=== PATIENT | female | born 1955 | race Caucasian/White ===

== ENCOUNTER → 2023-10-24 13:46 | Outpatient (CLI) | payer MEDICARE, SELFPAY ==
--- NOTE | 2023-11-12 17:02 | DIAB.INIT ---
Initial Diabetes Education Assessment Name: Agatha Amaro Date: 10/24/23 Time: 2-315p Dx: Diabetes Provider: Armani Snider presents for initial visit with friend, Kulwant. Reports PMH of Dm x 2 years. Currently on both oral and MDI. She is interested in CGM. Reports a fall at home, hypoglcyemia not ruled out as a contributing factor per report. Currently living in a SNF and plans for moving to a assisted environment thereafter. Endorses FH of DM with both parents and brother. Needing education on tx of lows. No recent labs available. Has SMBG results. 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 States she has a referral to [facility] but has not made an appt. Self-Monitoring Blood Glucose: Checks FBG and pre meals. Recent readings range from 97 to over 200. States she is unsure of SSI amts since SNF gives her dose. Diabetes Medications: 500mg Metformin BID 10mg Jardiance 24u Glargine 6u + SSi Lispro Pertinent Labs: None available. Intervention: This participant was very receptive. Provided appropriate educational handouts. Discussed the following topics: Completed intake assessment. Discussed barriers to care. Pathophysiology of type 2 diabetes HgA1c, its correlation to blood glucose numbers, and rationale for goal self monitoring with finger sticks vs CGM Benefits, indications, precautions of CGM use Hypoglycemia tx with Rule of 15 Created SMART goals for patient self-care and success. Goals: Call endo for appt Keep glucose tabs for lows Follow-up: [facility] follow-up in 4 weeks Ting Pickens RDN, ZENON Certified Diabetes Care and Manager Mac P: [phone] Thank you for this referral
== END ==
PROVIDERS: PCP Family Medicine; Referring Provider Family Medicine
DX: E11.9 Type 2 diabetes mellitus without complications (principal); Z71.3 Dietary counseling and surveillance
CPT/HCPCS: G0108

== ENCOUNTER 2023-11-14 19:49 | Emergency (ER) | payer MEDICARE, SELFPAY ==
[2023-11-14] VITALS (8 sets, daily range): BP systolic 118–155; BP diastolic 59–69; PULSE 75–81; RESP 14–17; TEMP 36.6; O2SAT 96–99; BMI 18.3
[2023-11-14 20:17] LABS: Add Manual Diff / Slide Review NO; Basophils Absolute Auto 100 /uL (0-100); Basophils Percent Auto 0.7 % (0-2); Eosinophils Absolute Auto 200 /uL (0-450); Eosinophils Percent Auto 1.6 % (2-4); Hematocrit 37.1 % (36-46); Hemoglobin 12.5 g/dL (12.0-16.0); Lymphocytes Absolute Auto 2900 /uL (1100-4500); Lymphocytes Percent Auto 25.5 % (25-40); Mean Corpuscular HGB Conc 33.7 % (30-36); Mean Corpuscular Hemoglobin 31.1 PG (26-34); Mean Corpuscular Volume 92.3 fL (80-100); Monocytes Absolute Auto 900 /uL (0-900); Monocytes Percent Auto 7.6 % (3-14); Neutrophils Absolute Auto 7300 /uL (1500-7000); Neutrophils Percent Auto 64.6 % (50-75); Platelet Count 340 X10^3/uL (150-400); Red Blood Cell Count 4.01 X10^6/uL (4.0-5.2); Red Cell Distribution Width 13.9 % (11.6-14.8); White Blood Cell Count 11.4 X10^3/uL (4.5-11.0)
[2023-11-14] MEDS: SODIUM CHLORIDE 0.9% 1,000 ML 1000 ML IV (20:19)
[2023-11-14 20:20] LABS: HEMOLYSIS < 15 (0-50)
[2023-11-14 20:24] LABS: Alanine Aminotransferase 23 IU/L (<35); Albumin 4.7 g/dL (3.5-5.0); Albumin Globulin Ratio 1.6 (1.0-2.8); Alkaline Phosphatase 109 U/L (38-126); Aspartate Aminotransferase 40 IU/L (14-36); BUN Creatinine Ratio 54.2 (6-22); Bilirubin Total 0.3 mg/dL (0.2-1.3); Blood Urea Nitrogen 45 mg/dL (7-17); Calcium 9.6 mg/dL (8.4-10.2); Carbon Dioxide 23 mmol/L (22-32); Chloride 101 mmol/L (98-107); Creatine Kinase 46 U/L (30-135); Estimated Glomerular Filt Rate > 60 mL/min (>60); Glucose 209 mg/dL (80-110); Lipase 165 U/L (23-300); Potassium 4.8 mmol/L (3.4-5.1); Sodium 133 mmol/L (137-145); Total Protein 7.7 g/dL (6.3-8.2)
--- NOTE | 2023-11-14 20:33 | ED_ITS ---
HPI - General Adult General Chief complaint: Dizziness Stated complaint: head swimming/high blood sugar Time Seen by Provider: 11/14/23 20:08 Source: patient Mode of arrival: Ambulatory History of Present Illness HPI narrative: Patient is a 67-year-old female. Is a insulin-dependent diabetic. She states she was here because at about 4-5 o'clock this afternoon her lightheadedness got somewhat worse. She has been dealing with lightheadedness for some time now. She describes it at least over the past several months. She states that today the lightheadedness was somewhat worse than what it normally is but then it seemed to get even worse than that late this afternoon. No chest pain or shortness of breath. She describes it as a lightheadedness and not vertigo sensation. She denies headache, vision changes, she was having balance issues but she has been having balance issues for at least the past couple weeks. She has some tingling in her right upper extremity but that has been there for several months after she injured her right shoulder. She also noticed that her blood sugar was elevated today. She has an appointment with her primary doctor in 36 hours from now. Review of Systems Review of Systems Narrative: See HPI Patient History Social History Smoking Status: Former smoker Smoking Status: Former smoker alcohol intake frequency: other Substance Use Type: marijuana Exam Initial Vital Signs Initial Vital Signs: Vital Signs Pulse Rate 78 11/14/23 20:05 Pulse Oximetry 98 11/14/23 20:05 Const General: cooperative, comfortable and No ill appearing HENMT Head: normal to inspection and normocephalic Eyes EOM: EOM intact bilaterally Resp Effort & Inspection: normal respiratory effort Auscultation: clear to auscultation bilaterally Cardio Rate: regular rate Rhythm: regular rhythm GI Inspection: normal to inspection and non-distended Skin General: no rashes or lesions noted Neuro General: patient alert, patient oriented x3, tone normal and moves all extremities Cognition: normal cognition Speech: speech normal Sensory Exam: no sensory deficits noted Extrem General: normal to inspection and capillary refill normal Scores GCS [place] coma scale eye opening: Spontaneous [place] coma scale verbal response: Orientated [place] coma scale motor response: Obey commands [place] coma scale total score: 15 Course Orders Ordered: ED Orders 11/14/23 20:00 Complete Blood Count AUTO DIFF Stat Comprehensive Metabolic Panel Stat Ketones (Beta-Hydroxybutyrate) Stat Lipase Stat Troponin & CK Cardiac Panel Stat 11/14/23 20:09 EKG-12 Lead Stat 11/14/23 20:32 CT angio head and neck Stat CT head/brain wo con Stat Discontinued Medications Sodium Chloride (Normal Saline 0.9%) 1,000 mls @ 1,000 mls/hr IV BOLUS ONE Stop: 11/14/23 21:07 Last Infusion: 11/14/23 21:40 Dose: Infused Documented By: Admin: 11/14/23 20:19 Dose: 1,000 mls/hr Documented By: NICOLE Vital Signs Vital signs: Vital Signs - 8 hr 11/14/23 20:05 11/14/23 20:06 11/14/23 20:30 Temperature 97.9 F Pulse Rate 78 81 76 Respiratory Rate 16 17 Blood Pressure 155/69 H Pulse Oximetry 98 98 96 Oxygen Delivery Method Room Air 11/14/23 20:38 11/14/23 20:38 11/14/23 21:00 Temperature Pulse Rate 76 75 Respiratory Rate 16 16 Blood Pressure 128/59 L Pulse Oximetry 99 98 Oxygen Delivery Method 11/14/23 21:25 11/14/23 21:25 11/14/23 21:30 Temperature Pulse Rate 76 75 Respiratory Rate 15 14 Blood Pressure 130/60 Pulse Oximetry 98 98 Oxygen Delivery Method 11/14/23 21:30 11/14/23 22:00 11/14/23 22:00 Temperature Pulse Rate 78 Respiratory Rate 16 Blood Pressure 118/61 132/62 Pulse Oximetry 99 Oxygen Delivery Method Medical Decision Making Lab Data Lab results reviewed: Yes I reviewed the patient's lab results. 11/14/23 20:00 11/14/23 20:00 Labs: Lab Results 11/14/23 Range/Units 20:00 WBC 11.4 H (4.5-11.0) X10^3/uL RBC 4.01 (4.0-5.2) X10^6/uL Hgb 12.5 (12.0-16.0) g/dL Hct 37.1 (36-46) % MCV 92.3 (80-100) fL MCH 31.1 (26-34) PG MCHC 33.7 (30-36) % RDW 13.9 (11.6-14.8) % Plt Count 340 (150-400) X10^3/uL Neut % (Auto) 64.6 (50-75) % Lymph % (Auto) 25.5 (25-40) % [place] % (Auto) 7.6 (3-14) % Eos % (Auto) 1.6 L (2-4) % Baso % (Auto) 0.7 (0-2) % Neut # (Auto) 7300 H (1670-1161) /uL Lymph # (Auto) 2900 (3915-4448) /uL [place] # (Auto) 900 (0-900) /uL Eos # (Auto) 200 (0-450) /uL Baso # (Auto) 100 (0-100) /uL Sodium 133 L (137-145) mmol/L Potassium 4.8 (3.4-5.1) mmol/L Chloride 101 (98-107) mmol/L Carbon Dioxide 23 (22-32) mmol/L BUN 45 H (7-17) mg/dL Creatinine 0.83 (0.52-1.04) mg/dL Estimated GFR > 60 (>60) mL/min BUN/Creatinine Ratio 54.2 H (6-22) Glucose 209 H (80-110) mg/dL Calcium 9.6 (8.4-10.2) mg/dL Total Bilirubin 0.3 (0.2-1.3) mg/dL AST 40 H (14-36) IU/L ALT 23 (<35) IU/L Alkaline Phosphatase 109 (38-126) U/L Total Creatine Kinase 46 (30-135) U/L Troponin I < 0.012 (0.01-0.034) ng/mL Total Protein 7.7 (6.3-8.2) g/dL Albumin 4.7 (3.5-5.0) g/dL Globulin 3.0 (1.7-4.1) g/dL Albumin/Globulin Ratio 1.6 (1.0-2.8) Lipase 165 (23-300) U/L Ketones < 0.20 (<0.27) mmol/L Point of Care Testing Glucose POC 186 Point of care testing: Point of Care Testing Glucose POC [address] scan - head: Radiologist's Impression: PROCEDURE: CT HEAD/BRAIN WO CON INDICATIONS: dizziness TECHNIQUE: Noncontrast 4.5 mm thick angled axial sections acquired from the foramen magnum to the vertex, with coronal and sagittal reformats. For radiation dose reduction, the following was used: automated exposure control, adjustment of mA and/or kV according to patient size. COMPARISON: None. FINDINGS: Image quality: Diagnostic. CSF spaces: Basal cisterns are patent. No extra-axial fluid collections. The ventricles are symmetric in size and shape. Brain: No intracranial bleeds or masses. There is cerebral volume loss for age, with resultant ventricular and sulcal prominence. There are periventricular and deep white matter chronic small vessel ischemic changes. There is intracranial internal carotid artery atherosclerosis. Skull and face: Calvarium and visualized facial bones appear intact, without suspicious lesions. Sinuses: Visualized sinuses and mastoids are clear. IMPRESSION: No acute intracranial pathology. CTA - brain/neck: Radiologist's Impression: PROCEDURE: CT ANGIO HEAD AND NECK INDICATIONS: dizziness TECHNIQUE: After the administration of intravenous contrast, 1 mm thick sections acquired from the aortic arch through the [place] of [place]. 3-dimensional ajzyhub-exmvxeykv-fevxgdthxj (MIP) and/or volume rendering reformats were acquired of the central intracranial vasculature and neck separately. For radiation dose reduction, the following was used: automated exposure control, adjustment of mA and/or kV according to patient size. COMPARISON: None. FINDINGS: Image quality: Diagnostic. BRAIN: CSF spaces: Ventricles are normal in size and shape. Basal cisterns are patent. No extra-axial fluid collections. Brain: No significant abnormality of the brain can be seen. Skull and face: Calvarium and facial bones appear intact, without suspicious lesions. Orbits appear normal. Sinuses: Sinuses and mastoids are clear. HEAD CT ANGIOGRAPHY: Anterior circulation: Intracranial internal carotid arteries are normal in size and flow. The flow within the paired anterior cerebral arteries is normal and symmetric. The flow within the middle cerebral arteries is normal and symmetric. The anterior communicating artery is seen. No aneurysms are seen. Posterior circulation: Visualized portions of the vertebral arteries demonstrate normal caliber, and join to form a normal appearing basilar artery. Flow within the posterior cerebral arteries is normal and symmetric. No aneurysms are seen. The right posterior inferior cerebellar artery is not seen arising from the vertebral artery. This may be a normal variant as the left is prominent. NECK CT ANGIOGRAPHY: Carotid system: The great vessels demonstrate a conventional anatomy as they arise from the aortic arch. The origins of the common carotid arteries appear patent. The common carotid arteries demonstrate normal caliber and courses. The bifurcation regions are both widely patent. The internal carotid arteries demonstrate normal calibers and courses. Posterior circulation: The origins of the vertebral arteries both appear widely patent. The more superior extracranial portions of both vertebral arteries also demonstrate normal courses and calibers. They join to form a normal appearing basilar artery. Soft tissues: Visualized neck soft tissues demonstrate no suspicious abnormalities. Bones: No suspicious bony lesions. There is severe degenerative appearing cervical spine kyphosis without acute fracture. Prominent anterior endplate spurs are present from C4 through C7. IMPRESSION: There is nonvisualization of the right posterior inferior cerebellar artery which may be a normal variant. Clinical correlation is recommended and MR imaging if there is ongoing concern for acute process. No acute arterial abnormality in the carotid or vertebral system of the neck. Marked degenerative appearing cervical kyphosis. Any quantitative measurements of stenosis were performed using NASCET criteria ECG Data Attestation: I personally reviewed and interpreted this ECG as follows: Interpretation: Sinus rhythm Ventricular rate is 76 Normal axis Occasional PAC Normal QRS No ST T wave changes MDM Narrative Medical decision making narrative: Patient is hyperglycemic but not in DKA. The symptoms that she presented with today have actually been going on for the past several weeks just got worse late this afternoon. I have low suspicion for an acute CVA. Low suspicion for TIA. Her electrolytes are unremarkable and do not specifically explain her presenting symptoms today. Low suspicion for ACS as the cause of her symptoms. She was using a walker and has been using this for the past 2 weeks. I would not be surprised with the patient does need further evaluation. Potentially referral to see ENT or Neurology. Potentially even a referral to have an MRI however there was no indication for admission to the hospital today. She has a follow- up with her primary doctor in less than 48 hours. Recommended that she keep that appointment. She was given return precautions and follow-up instructions. She expressed understanding and agreement. Discharge Plan Departure Patient Disposition: Home Clinical Impression: Dizziness, Hyperglycemia Instructions: DI for Dizziness-Nonvertigo Activity Restrictions/Additional Instructions: I recommend that you continue to take all of your medications as directed. Keep your scheduled appointment with your primary doctor on of this week. Use the walker as needed. Return to the emergency department for new or worsening symptoms. Referrals: Seb Lomeli MD [Primary Care Provider] - Stand Alone Forms: Patient Portal/API
[2023-11-14 20:36] LABS: Troponin I < 0.012 ng/mL (0.01-0.034)
[2023-11-14 20:50] LABS: Ketones (Beta-Hydroxybutyrate) < 0.20 mmol/L (<0.27)
== END 2023-11-14 22:25 | disposition home or self-care (01) ==
PROVIDERS: Emergency Provider Emergency Medicine; PCP Family Medicine
DX: E11.65 Type 2 diabetes mellitus with hyperglycemia (principal); R42 Dizziness and giddiness; Z79.4 Long term (current) use of insulin; R03.0 Elevated blood-pressure reading, without diagnosis of hypertension
CPT/HCPCS: 36415; 70450; 70496; 70498; 80053; 82009; 82550; 82962; 83690; 84484; 85025; 93005; 99284; Q9967

== ENCOUNTER 2024-01-16 10:15 | Inpatient (IN) | payer MEDICARE, SELFPAY ==
[2024-01-16] VITALS (18 sets, daily range): BP systolic 106–171; BP diastolic 70–115; PULSE 90–123; RESP 17–32; TEMP 36.4–37.6; O2SAT 94–100; BMI 18.7
--- NOTE | 2024-01-16 10:18 | PC.NURSE ---
Irwin Rn from [address] called. Patient sent with POA for left sided chest pain under left breast worse with movement. Recent evaluation at [facility] with costochondritis, did not fill meloxicam or hydrocodone RN. Pt VS stable when left facility.
--- NOTE | 2024-01-16 10:57 | DI.RAD.S_ITS ---
PROCEDURE: XR CHEST 1V INDICATIONS: chest pain TECHNIQUE: One view of the chest was acquired. COMPARISON: None. FINDINGS: Surgical changes and devices: None. Lungs and pleura: Lungs are clear. No pleural effusions or pneumothorax. Mediastinum: Mediastinal contours appear normal. Heart enlarged. Bones and chest wall: Chronic right humeral neck fracture. No suspicious bony lesions. S shaped thoracolumbar spine scoliosis with partially visualized thoracolumbar spine fixation hardware. Overlying soft tissues appear unremarkable. IMPRESSION: No acute cardiopulmonary abnormality is seen. Dictated by: Tere Castillo MD, PhD on 01/16/2024 at 11:25 Approved by: Tere Castillo MD, PhD on 01/16/2024 at 11:26
--- NOTE | 2024-01-16 10:59 | EKG_ITS ---
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
[2024-01-16 11:10] LABS: Add Manual Diff / Slide Review NO; Basophils Absolute Auto 100 /uL (0-100); Basophils Percent Auto 0.6 % (0-2); Eosinophils Absolute Auto 200 /uL (0-450); Eosinophils Percent Auto 0.7 % (2-4); Hematocrit 37.4 % (36-46); Hemoglobin 12.4 g/dL (12.0-16.0); Lymphocytes Absolute Auto 1900 /uL (1100-4500); Mean Corpuscular HGB Conc 33.1 % (30-36); Mean Corpuscular Hemoglobin 30.6 PG (26-34); Mean Corpuscular Volume 92.2 fL (80-100); Monocytes Absolute Auto 1800 /uL (0-900); Monocytes Percent Auto 8.8 % (3-14); Neutrophils Absolute Auto 16900 /uL (1500-7000); Neutrophils Percent Auto 80.9 % (50-75); Platelet Count 523 X10^3/uL (150-400); Red Blood Cell Count 4.05 X10^6/uL (4.0-5.2); Red Cell Distribution Width 15.2 % (11.6-14.8); White Blood Cell Count 20.9 X10^3/uL (4.5-11.0)
[2024-01-16 11:22] LABS: INR 1.1 (0.9-1.3); Prothrombin Time 12.3 SECONDS (9.4-12.5)
[2024-01-16 11:25] LABS: PTT Partial Thromboplastin Tim 38 SECONDS (25.1-36.5)
[2024-01-16 11:29] LABS: Alanine Aminotransferase 16 IU/L (<35); Albumin 4.4 g/dL (3.5-5.0); Albumin Globulin Ratio 1.2 (1.0-2.8); Alkaline Phosphatase 112 U/L (38-126); Aspartate Aminotransferase 33 IU/L (14-36); BUN Creatinine Ratio 23.7 (6-22); Bilirubin Total 0.6 mg/dL (0.2-1.3); Blood Urea Nitrogen 14 mg/dL (7-17); Calcium 10.1 mg/dL (8.4-10.2); Carbon Dioxide 24 mmol/L (22-32); Chloride 99 mmol/L (98-107); Creatine Kinase 37 U/L (30-135); Estimated Glomerular Filt Rate > 60 mL/min (>60); Globulin 3.6 g/dL (1.7-4.1); Glucose 161 mg/dL (80-110); HEMOLYSIS < 15 (0-50); Lipase 77 U/L (23-300); Potassium 4.7 mmol/L (3.4-5.1); Sodium 131 mmol/L (137-145)
[2024-01-16 11:37] LABS: NT-proBNP (BNP-Adult 18+) 375 pg/mL (<125)
[2024-01-16 11:39] LABS: Troponin I < 0.012 ng/mL (0.01-0.034)
[2024-01-16 13:43] LABS: Troponin I < 0.012 ng/mL (0.01-0.034)
--- NOTE | 2024-01-16 14:55 | ED_ITS ---
HPI - Chest Pain General Chief Complaint: Chest Pain Stated Complaint: severe chest pains Time Seen by Provider: 01/16/24 14:38 Source: patient Mode of arrival: Wheelchair History of Present Illness HPI narrative: 68-year-old female with history of rheumatoid arthritis (not on immunosuppressant meds), NIDDM presents for left-sided chest pain. Pain is constant, aggravating, worse when she lays on her left side. Nothing makes it better or worse. No medications taken prior to arrival. Patient states that she moved from [place] to [place]. Prior to moving from [place] she was told that she has a lung nodule that would need to be CT'd, however this procedure was never done. Patient denies shortness of breath, palpitations, lightheadedness. Related Data Home Medications Medication Instructions Recorded Confirmed acetaminophen 325 mg tablet 325 mg PO BID 01/16/24 01/16/24 ascorbic acid (vitamin C) 250 mg 250 mg PO DAILY 01/16/24 01/16/24 tablet (Vitamin C) aspirin 81 mg chewable tablet 1 tab PO DAILY 01/16/24 01/16/24 atorvastatin 10 mg tablet 10 mg PO DAILY 01/16/24 01/16/24 celecoxib 200 mg capsule 200 mg PO DAILY 01/16/24 01/16/24 cyclobenzaprine 5 mg tablet 5 mg PO 3XD PRN Pain (Scale Score 01/16/24 01/16/24 4-6) empagliflozin 10 mg tablet 10 mg PO DAILY 01/16/24 01/16/24 (Jardiance) empagliflozin 10 mg tablet 10 mg PO DAILY 01/16/24 01/16/24 (Jardiance) famotidine 20 mg tablet 20 mg PO DAILY 01/16/24 01/16/24 ferrous sulfate 325 mg (65 mg 325 mg PO QAM 01/16/24 01/16/24 iron) tablet (FeroSul) folic acid 1 mg tablet 1 mg PO DAILY 01/16/24 01/16/24 insulin glargine 100 unit/mL (3 24 unit SUBCUT QPM 01/16/24 01/16/24 mL) subcutaneous pen (Lantus Solostar U-100 Insulin) magnesium oxide 400 mg (241.3 mg 400 mg PO DAILY 01/16/24 01/16/24 magnesium) tablet metformin 500 mg tablet,extended 500 mg PO BID 01/16/24 01/16/24 release 24 hr multivitamin 1 tab PO DAILY 01/16/24 01/16/24 potassium phosphate, monobasic 500 500 mg PO DAILY 01/16/24 01/16/24 mg soluble tablet (K-Phos Original) thiamine mononitrate (vit B1) 100 100 mg PO DAILY 01/16/24 01/16/24 mg tablet (Vitamin B-1 (mononitrate)) Allergies Allergy/AdvReac Type Severity Reaction Status Date / Time bupropion Allergy Verified 01/16/24 10:51 meloxicam Allergy Verified 01/16/24 10:51 Patient History Social History household members: none Smoking Status: Former smoker alcohol intake: former Smoking Status: Former smoker alcohol intake frequency: other Substance Use Type: does not use Exam Initial Vital Signs Initial Vital Signs: Vital Signs Temperature 99.7 F H 01/16/24 10:51 Pulse Rate 123 H 01/16/24 10:51 Respiratory Rate 18 01/16/24 10:51 Blood Pressure 114/78 01/16/24 10:51 Pulse Oximetry 98 01/16/24 10:51 Oxygen Delivery Method Room Air 01/16/24 10:51 Const: Awake, alert, no acute distress, frail Cardiac: Tachycardia, regular rhythm RESP: unlabored, clear bilaterally, no wheezing Skin: Warm, Dry, intact, no rashes Neuro: AO x3, CN II-XII grossly intact, moves all extremities Course Orders Ordered: Acetaminophen (Acetaminophen 325 Mg Tablet) 650 mg PO Q6H PRN PRN Reason: Fever/Mild Pain (1-3) Last Admin: 01/17/24 08:27 Dose: 650 mg Documented By: NADEEM Hydrocodone Bitart/Acetaminophen (Hydrocodone/Acet 5/325 Tablet) 1 tab PO Q4H PRN PRN Reason: Pain, Moderate (4-6) Last Admin: 01/17/24 02:24 Dose: 1 tab Documented By: KEN Al Hydrox/Mg Hydrox/Simethicone (Mag Hydrox/Alum/Simeth 30 Ml Udc) 30 ml PO Q6HR PRN PRN Reason: Dyspepsia Ascorbic Acid (Ascorbic Acid 500 Mg Tablet) 250 mg PO DAILY MADHURI Last Admin: 01/17/24 12:09 Dose: 250 mg Documented By: NADEEM Aspirin (Aspirin 81 Mg Chew Tab) 81 mg PO DAILY [facility] Last Admin: 01/17/24 12:09 Dose: 81 mg Documented By: NADEEM Atorvastatin Calcium (Atorvastatin 20 Mg Tablet) 10 mg PO DAILY [facility] Celecoxib (Celecoxib 200 Mg Capsule) 200 mg PO DAILY [facility] Last Admin: 01/17/24 12:09 Dose: 200 mg Documented By: NADEEM Diltiazem HCl (Diltiazem Cd 120 Mg Cap) 120 mg PO DAILY [facility] Last Admin: 01/17/24 11:19 Dose: 120 mg Documented By: NADEEM Folic Acid (Folic Acid 1 Mg Tablet) 1 mg PO DAILY [facility] Last Admin: 01/17/24 12:09 Dose: 1 mg Documented By: NADEEM Heparin Sodium (Porcine) (Heparin 5,000 Unit/Ml Vial) 5,000 unit SUBCUT Q8HR [facility] Last Admin: 01/17/24 15:40 Dose: 5,000 unit Documented By: Admin: 01/17/24 05:45 Dose: 5,000 unit Documented By: KEN Ceftriaxone Sodium 1,000 mg/ (Sodium Chloride) 100 mls @ 200 mls/hr IV Q24H [facility] Last Admin: 01/17/24 17:47 Dose: 200 mls/hr Documented By: NADEEM Azithromycin 500 mg/ Dextrose 250 mls @ 250 mls/hr IV Q24H [facility] Last Admin: 01/17/24 18:15 Dose: 250 mls/hr Documented By: NADEEM Dextrose (D10w) 100 mls @ 999 mls/hr IV PRN PRN PRN Reason: Hypoglycemia DILTIAZEM (Diltiazem 125 Mg/125 Ml-D5w) 125 mg in 125 mls @ 5 mls/hr IV TITRATE [facility]; Protocol Last Titration: 01/17/24 11:43 Dose: 0 mg/hr, 0 mls/hr Documented By: Titration: 01/17/24 05:43 Dose: 15 mg/hr, 15 mls/hr Documented By: Titration: 01/17/24 04:44 Dose: 10 mg/hr, 10 mls/hr Documented By: Admin: 01/17/24 02:24 Dose: 5 mg/hr, 5 mls/hr Documented By: KEN Dextrose (D10w) 100 mls @ 999 mls/hr IV PRN PRN PRN Reason: Hypoglycemia Insulin Glargine (Insulin Glargine 100 Unit/Ml 3ml Pen) 24 unit SUBCUT 0800 [facility] Last Admin: 01/17/24 12:09 Dose: 24 unit Documented By: NADEEM Co-signed By: MS Insulin Human Lispro (Insulin Lispro 100 Unit/Ml 3ml Vial) 0 unit SUBCUT ACHS [facility]; Protocol Last Admin: 01/17/24 17:44 Dose: 7 unit Documented By: NADEEM Co-signed By: Admin: 01/17/24 12:10 Dose: 10 unit Documented By: NADEEM Co-signed By: MS Methylprednisolone (Methylprednisolone 125 Mg/2 Ml Vial) 60 mg IV Q8H [facility] Last Admin: 01/17/24 18:15 Dose: 60 mg Documented By: Admin: 01/17/24 11:19 Dose: 60 mg Documented By: Admin: 01/17/24 02:25 Dose: 60 mg Documented By: Admin: 01/16/24 19:36 Dose: 60 mg Documented By: ARANZA Naloxone HCl (Naloxone 0.4 Mg/Ml Vial) 0.2 mg IV Q2MIN PRN PRN Reason: Opiate Reversal Ondansetron HCl (Ondansetron 4 Mg/2 Ml Inj) 4 mg IV Q8HR PRN PRN Reason: Nausea And Vomiting Last Admin: 01/17/24 02:32 Dose: 4 mg Documented By: Sodium Chloride (Sodium Chloride 0.9% Flush) 10 ml IV PRN PRN PRN Reason: Flush Last Admin: 01/17/24 01:32 Dose: 10 ml Documented By: Admin: 01/17/24 00:31 Dose: 10 ml Documented By: ARANZA Sodium Chloride (Sodium Chloride 0.9% Flush) 10 ml IV BID [facility] Last Admin: 01/17/24 08:27 Dose: 10 ml Documented By: NADEEM Discontinued Medications Hydrocodone Bitart/Acetaminophen (Hydrocodone/Acet 5/325 Tablet) 1 tab PO NOW ONE Stop: 01/16/24 17:34 Last Admin: 01/16/24 17:40 Dose: 1 tab Documented By: LULY Azithromycin (Azithromycin 250 Mg Tablet) 500 mg PO NOW ONE Stop: 01/16/24 17:34 Last Admin: 01/16/24 17:40 Dose: 500 mg Documented By: LULY Diltiazem HCl (Diltiazem 25 Mg/5 Ml Sdv) 10 mg IV NOW ONE Stop: 01/17/24 01:09 Last Admin: 01/17/24 01:31 Dose: 10 mg Documented By: ARANZA Heparin Sodium (Porcine) (Heparin 5,000 Unit/Ml Vial) 5,000 unit SUBCUT BID [facility] Last Admin: 01/16/24 21:14 Dose: 5,000 unit Documented By: ARANZA Ceftriaxone Sodium 1,000 mg/ (Sodium Chloride) 100 mls @ 200 mls/hr IV NOW ONE Stop: 01/16/24 17:34 Last Infusion: 01/16/24 18:08 Dose: Infused Documented By: Admin: 01/16/24 17:42 Dose: 200 mls/hr Documented By: LULY Insulin Human Lispro (Insulin Lispro 100 Unit/Ml 3ml Vial) 0 unit SUBCUT [facility]; Protocol Last Admin: 01/17/24 08:25 Dose: 3 unit Documented By: NADEEM Co-signed By: Admin: 01/16/24 21:05 Dose: Not Given Documented By: ARANZA Metoprolol Tartrate (Metoprolol Tartrate 5 Mg/5 Ml Inj) 5 mg IV Q5M [facility] Stop: 01/16/24 16:56 Last Admin: 01/16/24 17:36 Dose: Not Given Documented By: Admin: 01/16/24 17:36 Dose: Not Given Documented By: Admin: 01/16/24 16:38 Dose: 5 mg Documented By: LULY Metoprolol Tartrate (Metoprolol Tartrate 5 Mg/5 Ml Inj) 5 mg IV NOW ONE Stop: 01/17/24 00:24 Last Admin: 01/17/24 00:31 Dose: 5 mg Documented By: ARANZA Vital Signs Vital signs: Vital Signs - 8 hr 01/16/24 10:51 01/16/24 14:43 01/16/24 15:24 Temperature 99.7 F H Pulse Rate 123 H 122 H 119 H Respiratory Rate 18 27 H 32 H Blood Pressure 114/78 Pulse Oximetry 98 98 94 Oxygen Delivery Method Room Air 01/16/24 15:25 01/16/24 15:25 01/16/24 15:30 Temperature Pulse Rate 120 H Respiratory Rate 32 H Blood Pressure 134/93 H 129/72 Pulse Oximetry 96 Oxygen Delivery Method 01/16/24 15:30 01/16/24 16:00 01/16/24 16:00 Temperature Pulse Rate 117 H 121 H Respiratory Rate 21 24 Blood Pressure 135/74 Pulse Oximetry 100 99 Oxygen Delivery Method 01/16/24 16:30 01/16/24 16:31 01/16/24 16:31 Temperature Pulse Rate 123 H 123 H Respiratory Rate 23 22 Blood Pressure 171/71 H Pulse Oximetry 97 98 Oxygen Delivery Method 01/16/24 16:40 01/16/24 16:50 Temperature Pulse Rate 115 H 90 Respiratory Rate 18 19 Blood Pressure Pulse Oximetry 98 99 Oxygen Delivery Method MDM - Chest Pain Lab Data 01/17/24 06:16 01/17/24 06:16 Labs: Lab Results 01/16/24 01/16/24 Range/Units 10:57 13:06 WBC 20.9 H (4.5-11.0) X10^3/uL RBC 4.05 (4.0-5.2) X10^6/uL Hgb 12.4 (12.0-16.0) g/dL Hct 37.4 (36-46) % MCV 92.2 (80-100) fL MCH 30.6 (26-34) PG MCHC 33.1 (30-36) % RDW 15.2 H (11.6-14.8) % Plt Count 523 H (150-400) X10^3/uL Neut % (Auto) 80.9 H (50-75) % Lymph % (Auto) 9.0 L (25-40) % [place] % (Auto) 8.8 (3-14) % Eos % (Auto) 0.7 L (2-4) % Baso % (Auto) 0.6 (0-2) % Neut # (Auto) 63473 H (0682-1720) /uL Lymph # (Auto) 1900 (1662-2150) /uL [place] # (Auto) 1800 H (0-900) /uL Eos # (Auto) 200 (0-450) /uL Baso # (Auto) 100 (0-100) /uL PT 12.3 (9.4-12.5) SECONDS INR 1.1 (0.9-1.3) APTT 38 H (25.1-36.5) SECONDS Sodium 131 L (137-145) mmol/L Potassium 4.7 (3.4-5.1) mmol/L Chloride 99 (98-107) mmol/L Carbon Dioxide 24 (22-32) mmol/L BUN 14 (7-17) mg/dL Creatinine 0.59 (0.52-1.04) mg/dL Estimated GFR > 60 (>60) mL/min BUN/Creatinine Ratio 23.7 H (6-22) Glucose 161 H (80-110) mg/dL Calcium 10.1 (8.4-10.2) mg/dL Magnesium 2.0 (1.6-2.3) mg/dL Total Bilirubin 0.6 (0.2-1.3) mg/dL AST 33 (14-36) IU/L ALT 16 (<35) IU/L Alkaline Phosphatase 112 (38-126) U/L Total Creatine Kinase 37 (30-135) U/L Troponin I < 0.012 < 0.012 (0.01-0.034) ng/mL NT-Pro-B Natriuret Pep 375 H (<125) pg/mL Total Protein 8.0 (6.3-8.2) g/dL Albumin 4.4 (3.5-5.0) g/dL Globulin 3.6 (1.7-4.1) g/dL Albumin/Globulin Ratio 1.2 (1.0-2.8) Lipase 77 (23-300) U/L Imaging Data Chest x-ray: Radiologist's Impression: PROCEDURE: XR CHEST 1V INDICATIONS: chest pain TECHNIQUE: One view of the chest was acquired. COMPARISON: None. FINDINGS: Surgical changes and devices: None. Lungs and pleura: Lungs are clear. No pleural effusions or pneumothorax. Mediastinum: Mediastinal contours appear normal. Heart enlarged. Bones and chest wall: Chronic right humeral neck fracture. No suspicious bony lesions. S shaped thoracolumbar spine scoliosis with partially visualized thoracolumbar spine fixation hardware. Overlying soft tissues appear unremarkable. IMPRESSION: No acute cardiopulmonary abnormality is seen. Dictated by: Tere Castillo MD, PhD on 01/16/2024 at 11:25 Approved by: Tere Castillo MD, PhD on 01/16/2024 at 11:26 CT scan - chest: Radiologist's Impression: PROCEDURE: CT ANGIO CHEST PE PROTOCOL INDICATIONS: L CHEST PAIN, TACHYCARDIA, HX 'LUNG NODULE' PER PT TECHNIQUE: After the administration of intravenous contrast, 2 mm thick sections acquired from the pulmonary apices to the posterior costophrenic angles. 3-dimensional maximum intensity projection (MIP) coronal and sagittal reformats were then acquired through the thorax. For radiation dose reduction, the following was used: automated exposure control, adjustment of mA and/or kV according to patient size. COMPARISON: [facility], CR, XR CHEST 1V, 01/16/2024, 10:57. FINDINGS: Image quality: Diagnostic Lungs and pleura: Left lower lobe opacities and small effusion. There is volume loss in the left lower lobe. There is a spiculated nodule in the left lung apex measuring 1.6 cm. Small Bochdalek's hernia. No drainable right effusion. No dense airspace disease in the right lung. Mediastinum, heart, and esophagus: No acute pulmonary embolism. Mild nonspecific esophageal wall thickening. Calcified thoracic lymph nodes suggestive of granulomatous process. There is a moderate pericardial effusion. No pathologic lymph nodes by size criteria. Trace pericardial wall enhancement. Chest wall and thyroid: Unremarkable Upper abdomen: No gross abnormality on these arterial phase images. Hepatic vein contrast reflux indicating poor forward flow through the right heart. Bones: Thoracic postsurgical changes. Partially seen possible osteolysis of the right humeral head. IMPRESSION: Possible airspace disease in the left lower lung, with a small adjacent effusion. Suspicious spiculated nodule in the left lung apex. This is likely amenable sampling with interventional radiology consultation. Moderate pericardial effusion, with trace pericardial enhancement. Contrast reflux in hepatic veins, suggestive of poor forward cardiac flow through the right heart. No acute pulmonary embolism. Other findings above. Dictated by: Caleb Rodgers M.D. on 01/16/2024 at 16:12 Approved by: Caleb Rodgers M.D. on 01/16/2024 at 16:18 ECG Data Interpretation: Sinus tachycardia at 122 beats per minute. Normal TX, normal QTC, no ST T wave changes MDM Narrative Medical decision making narrative: Pleuritic left-sided chest pain. Patient does have tachycardia on the monitor, has no antiarrhythmic medications on her record list. Laboratory work and imaging to be obtained. Since patient has a history of nodule we will order a CT angio of the chest for assessment. Laboratory work is significant for WBC count 20.9, hemoglobin 12.4, platelets 523, sodium 131, potassium 4.7, creatinine 0.59, troponin undetectable, BNP 375. Uncertain etiology of patient's elevated white blood cell count. She does have history of rheumatoid arthritis but has not been on steroids per her report and per medication record list. No obvious infectious cause. CT chest shows small spiculated nodule as patient has described, there is a finding of pericardial effusion with reflux of contrast into the hepatic system. Patient does have history of rheumatoid arthritis, she was never had imaging of her chest previously, she states she was never been told that she has fluid around her heart. Uncertain chronicity, however due to the reflux of contrast cardiology consult will be obtained. Patient received a single dose of IV metoprolol with improvement in heart rate from 120 beats per minute to 90 beats per minute, normal sinus rhythm. Spoke with on-call Cardiology Dr. Ngo. This pericardial effusion is of indeterminate age and significance, however based on patient's tachycardia, reflux of contrast into the hepatic space, and patient's status as a resident of an adult care facility it was best to keep patient for echocardiogram to ensure there was no signs of tamponade. Patient amenable to admission at this time. Given Rocephin and azithromycin for left-sided infiltrate. Admitted to hospitalist service for further treatment. Critical Care Time Critical Care Time Critical Care Time: Yes Total Critical Care Time: 42 Attestation: Pericardial effusion, tachycardia requiring IV beta-blockers, frequent hemodynamic reassessments Discharge Plan Departure Patient Disposition: Admitted as Observation Clinical Impression: Pericardial effusion, Chest pain, Lung nodule seen on imaging study, Community acquired pneumonia Admit Date/Time: 01/16/24 17:34 Admit Provider: Vazquez Vasquez
[2024-01-16] MEDS: METOPROLOL TARTRATE 5 MG/5 ML INJ IV (16:38)
[2024-01-16] MEDS: HYDROCODONE/ACET 5/325 TABLET 1 TAB PO (17:40)
[2024-01-16] MEDS: AZITHROMYCIN 250 MG TABLET 500 MG PO (17:40)
[2024-01-16] MEDS: cefTRIAXone 1,000 MG in SODIUM CHLORIDE 0.9% 100 ML 200 MG IV (17:42)
--- NOTE | 2024-01-16 18:23 | DI.ECHO.S_ITS ---
[facility] : : [address] : : [place] : : [id number] : : Phone: [phone] Echocardiogram Report + + :Name: ERIK SAENZ Study Date: 01/17/2024 Height: 61 in : [facility] ReadingLocation: Weight: 99 lb : : Gender: Female BSA: 1.4 m2 : :: 1955 Age: 68 yrs BP: 122/65 mmHg: :Reason For Study: CHEST PAIN, PERICARDIAL EFFUSION : :Ordering Physician: TRICIA, : :TAIWO Meraz Performed By: Halina Pimentel : :Referring: TAIWO CLARKE : + + Interpretation Summary The ejection fraction is >75%. Diastolic parameters suggest probable normal left ventricular diastolic function and normal filling pressures. The right ventricle is normal in size and function. No significant valvular abnormalities. Pulmonary artery pressures cannot be estimated because of the lack of a measurable TR jet velocity. The IVC is of normal diameter and collapses greater than 50% with a sniff. This suggests a low right atrial pressure of 3 mm Hg. There is a moderate to large pericardial effusion noted. There are no echocardiographic indications of cardiac tamponade. There is a moderate left-sided pleural effusion. Procedure: A two-dimensional transthoracic echocardiogram with color flow and Doppler was performed. The study quality was technically adequate. There is no prior echocardiogram noted for this patient. The patient was in sinus rhythm with heart rates between 80-85 bpm during the exam. Left Ventricle: The left ventricular cavity is small. There is normal left ventricular wall thickness. The left ventricle is hyperdynamic. The ejection fraction is >75%. Diastolic parameters suggest probable normal left ventricular diastolic function and normal filling pressures. Right Ventricle: The right ventricle is normal in size and function. Atria: The left atrial size is normal. Right atrial size is normal. There is no Doppler evidence for an interatrial shunt. Mitral Valve: The mitral valve is normal in structure and function. There is trace mitral regurgitation. Aortic Valve: The aortic valve is trileaflet. The aortic valve opens well. There is no aortic valve stenosis. No aortic regurgitation is present. Tricuspid Valve: The tricuspid valve is normal in structure and function. There is a trace or physiologic amount of tricuspid regurgitation. Pulmonary artery pressures cannot be estimated because of the lack of a measurable TR jet velocity. Pulmonic Valve: The pulmonic valve leaflets are thin and pliable; valve motion is normal. There is no pulmonic valvular regurgitation. Great Vessels: The aortic root is normal size. The dimensions of the ascending aorta are normal. The IVC is of normal diameter and collapses greater than 50% with a sniff. This suggests a low right atrial pressure of 3 mm Hg. Pericardium/ Pleura There is a moderate to large pericardial effusion noted. There are no echocardiographic indications of cardiac tamponade. There is an anterior echo-free space consistent with a fat pad. There is a moderate left- sided pleural effusion. MMode/2D Measurements & Calculations LVIDd: 3.3 cm LVOT diam: 1.9 cm LVIDs: 1.6 cm Ao root diam: 2.5 cm FS: 52.4 % asc Aorta Diam: 2.3 cm IVSd: 0.62 cm Ao Arch Diam (Prox Trans): 2.0 cm LVPWd: 0.96 cm LV christian. diameter/BSA (cm/m^2): 2.3 LV sys. diameter/BSA (cm/m^2): 1.1 LA A2 area: 11.5 cm2 RA long axis: 4.5 cm LA A4 area: 12.8 cm2 RA area: 10.6 cm2 LA length (vol): 4.7 cm RA vol: 21.0 ml LA vol: 26.4 ml RA : 15.0 ml/m2 LA vol index: 18.8 ml/m2 IVC diam: 1.9 cm RVD1 (basal): 2.9 cm RVD2 (mid): 1.7 cm TAPSE: 1.6 cm Doppler Measurements & Calculations Ao V2 max: 150.3 cm/sec LVOT Max David: 121.4 cm/sec Ao V2 mean: 113.7 cm/sec LV V1 max P.9 mmHg Ao max P.0 mmHg LV V1 VTI: 21.3 cm Ao mean P.5 mmHg JAUN(I,D): 2.5 cm2 Ao V2 VTI: 23.4 cm JAUN(V,D): 2.2 cm2 sev ratio: 0.91 JAUN indexed to BSA (cm^2/m^2): 1.8 MV E max david: 79.6 cm/sec PA V2 max: 102.5 cm/sec MV A max david: 55.4 cm/sec PA V2 mean: 69.9 cm/sec MV E/A: 1.4 PA mean P.2 mmHg Med Peak E' David: 7.4 cm/sec PA pr(Accel): 43.0 mmHg E/E' med: 10.8 Lat Peak E' David: 6.7 cm/sec E/E' lat: 11.9 E/e' average: 11.3 MV dec time: 0.18 sec SV(OT): 58.8 ml Reading Physician:11:12 AM
--- NOTE | 2024-01-16 18:24 | P.HP_ITS ---
History of Present Illness History of Present Illness Date Patient Seen: 01/16/24 Chief complaint: severe chest pains Narrative: From ED doctor: 68-year-old female with history of rheumatoid arthritis (not on immunosuppressant meds), NIDDM presents for left-sided chest pain. Pain is constant, aggravating, worse when she lays on her left side. Nothing makes it better or worse. No medications taken prior to arrival. Patient states that she moved from [place] to [place]. Prior to moving from [place] she was told that she has a lung nodule that would need to be CT'd, however this procedure was never done. Patient denies shortness of breath, palpitations, lightheadedness. Additional information: She has had progressive pleuritic chest pain for the past several weeks. He is now very difficult to take much of a breath at all. She has a history of rheumatoid arthritis and used to be on medications but has not been on medications for RA for least the last 2-3 years. Her joints have had increased pain as well she has inability to move her right hand at all due to arthritis. She did have a fall distantly and fractured her right shoulder. This is remains relatively immobile. She denies a cough or shortness breath. Imaging did reveal a possible infiltrate as well as a lung nodule. She was a moderate pericardial effusion as well. These findings were discussed with Cardiology at [facility] her recommended an ultrasound. She denies any abdominal pain or other complaints. She lives in an adult family home, having moved up from [place] about 2 years ago. [facility] Social History Smoking Status: Former smoker Meds Home Medications and Allergies Home Medications Medication Instructions Recorded Confirmed Type acetaminophen 325 mg tablet 325 mg PO BID 01/16/24 01/16/24 History ascorbic acid (vitamin C) 250 mg 250 mg PO DAILY 01/16/24 01/16/24 History tablet (Vitamin C) aspirin 81 mg chewable tablet 1 tab PO DAILY 01/16/24 01/16/24 History atorvastatin 10 mg tablet 10 mg PO DAILY 01/16/24 01/16/24 History celecoxib 200 mg capsule 200 mg PO DAILY 01/16/24 01/16/24 History empagliflozin 10 mg tablet 10 mg PO DAILY 01/16/24 01/16/24 History (Jardiance) famotidine 20 mg tablet 20 mg PO DAILY 01/16/24 01/16/24 History ferrous sulfate 325 mg (65 mg 325 mg PO QAM 01/16/24 01/16/24 History iron) tablet (FeroSul) folic acid 1 mg tablet 1 mg PO DAILY 01/16/24 01/16/24 History multivitamin 1 tab PO DAILY 01/16/24 01/16/24 History potassium phosphate, monobasic 500 500 mg PO DAILY 01/16/24 01/16/24 History mg soluble tablet (K-Phos Original) thiamine mononitrate (vit B1) 100 100 mg PO DAILY 01/16/24 01/16/24 History mg tablet (Vitamin B-1 (mononitrate)) Allergies Allergy/AdvReac Type Severity Reaction Status Date / Time bupropion Allergy Verified 01/16/24 10:51 meloxicam Allergy Verified 01/16/24 10:51 Review of Systems Review of Systems Narrative: All else reviewed and otherwise unremarkable except as noted in the history and physical. Exam Vital Signs (past 8 hours): - 01/16/24 10:51 01/16/24 14:43 01/16/24 15:24 Temperature 99.7 F H Pulse Rate 123 H 122 H 119 H Respiratory Rate 18 27 H 32 H Blood Pressure 114/78 Pulse Oximetry 98 98 94 Oxygen Delivery Method Room Air 01/16/24 15:25 01/16/24 15:25 01/16/24 15:30 Temperature Pulse Rate 120 H Respiratory Rate 32 H Blood Pressure 134/93 H 129/72 Pulse Oximetry 96 Oxygen Delivery Method 01/16/24 15:30 01/16/24 16:00 01/16/24 16:00 Temperature Pulse Rate 117 H 121 H Respiratory Rate 21 24 Blood Pressure 135/74 Pulse Oximetry 100 99 Oxygen Delivery Method 01/16/24 16:30 01/16/24 16:31 01/16/24 16:31 Temperature Pulse Rate 123 H 123 H Respiratory Rate 23 22 Blood Pressure 171/71 H Pulse Oximetry 97 98 Oxygen Delivery Method 01/16/24 16:40 01/16/24 16:50 01/16/24 17:00 Temperature Pulse Rate 115 H 90 91 H Respiratory Rate 18 19 20 Blood Pressure Pulse Oximetry 98 99 98 Oxygen Delivery Method 01/16/24 17:01 01/16/24 17:01 01/16/24 17:10 Temperature Pulse Rate 90 93 H Respiratory Rate 19 23 Blood Pressure 114/70 Pulse Oximetry 98 98 Oxygen Delivery Method 01/16/24 17:20 01/16/24 17:30 01/16/24 17:30 Temperature Pulse Rate 96 H 97 H Respiratory Rate 26 H 19 Blood Pressure 115/72 Pulse Oximetry 98 98 Oxygen Delivery Method 01/16/24 17:40 Temperature Pulse Rate 101 H Respiratory Rate 20 Blood Pressure Pulse Oximetry 98 Oxygen Delivery Method Oxygen Delivery Method Room Air Narrative Exam Narrative: NAD, alert and oriented, fluent speech, calm. Normocephalic skull, EOMI, anicteric sclera, symmetric pupils. Oropharynx unremarkable, no droop. Neck supple, midline trachea, no adenopathy. Lungs clear, normal rate and effort. Heart regular, no murmur gallop or rub. Abdomen is soft, non distended and non tender. Extremities are free of edema. Skin is free of rash or lesions. Joints are not swollen or deformed. Judgment appears to be normal. Objective ECG Impression: Sinus tachycardia Septal infarct , age undetermined Imaging Chest x-ray: Radiologist's impression: No acute cardiopulmonary abnormality is seen. CT scan - chest: Radiologist's impression: Possible airspace disease in the left lower lung, with a small adjacent effusion. Suspicious spiculated nodule in the left lung apex. This is likely amenable sampling with interventional radiology consultation. Moderate pericardial effusion, with trace pericardial enhancement. Contrast reflux in hepatic veins, suggestive of poor forward cardiac flow through the right heart. No acute pulmonary embolism. Other findings above. Labs 01/16/24 10:57 01/16/24 10:57 Labs: Laboratory Results - last 24 hr 01/16/24 01/16/24 10:57 13:06 WBC 20.9 H RBC 4.05 Hgb 12.4 Hct 37.4 MCV 92.2 MCH 30.6 MCHC 33.1 RDW 15.2 H Plt Count 523 H Neut % (Auto) 80.9 H Lymph % (Auto) 9.0 L Bath % (Auto) 8.8 Eos % (Auto) 0.7 L Baso % (Auto) 0.6 Neut # (Auto) 17235 H Lymph # (Auto) 1900 Bath # (Auto) 1800 H Eos # (Auto) 200 Baso # (Auto) 100 PT 12.3 INR 1.1 APTT 38 H Sodium 131 L Potassium 4.7 Chloride 99 Carbon Dioxide 24 BUN 14 Creatinine 0.59 Estimated GFR > 60 BUN/Creatinine Ratio 23.7 H Glucose 161 H Calcium 10.1 Magnesium 2.0 Total Bilirubin 0.6 AST 33 ALT 16 Alkaline Phosphatase 112 Total Creatine Kinase 37 Troponin I < 0.012 < 0.012 NT-Pro-B Natriuret Pep 375 H Total Protein 8.0 Albumin 4.4 Globulin 3.6 Albumin/Globulin Ratio 1.2 Lipase 77 Assessment & Plan Assessment & Plan narrative: 1. Pleuritic chest pain which is likely rheumatoid pleuritis, present on admission and active. 2. 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 3. Possible pneumonia, present on admission and active. 4. Uncontrolled rheumatoid arthritis, present on admission and active. 5. DM 2, present on admission and active. PLAN: -empiric antibiotics with ceftriaxone and azithromycin. -blood cultures. -methylprednisolone 60 mg IV q.8 hours. -we will send CRP, sed rate, and rheumatoid factor. -we will discuss with rheumatology tomorrow. -we will discuss with Cardiology after echo tomorrow. Admit observation status, anticipate 1 night of hospital care. She was full resuscitation, confirmed time of admission. Time-Based Coding :: 40 min spent with patient and on the chart (including review of chart, obtaining history, exam, reviewing outside data, placing orders, documenting exam and treatment plan, and counseling patient) on 01/15. Quality MIPS - Admit I confirm the patient?s Advance Care Plan is present, Code status is documented, Surrogate decision maker is in patient?s record [If Yes, STOP here]: Yes MIPS - Meds 'Current medications' to include all prescriptions, [id number] products, herbals, cannabis/cannabidiol products, and vitamin/mineral/dietary (nutritional) supplements. I have utilized all available resources to obtain, update, or review the patient?s current medications. [If Yes, STOP here]: Yes
[2024-01-16] MEDS: methylPREDNISolone 125 MG/2 ML VIAL 60 MG IV (19:36)
[2024-01-16 19:47] LABS: Erythrocyte Sedimentation Rate 39 MM/HR (0-20)
[2024-01-16 19:53] LABS: Rheumatoid Factor 19.5 IU/mL (<12.0)
[2024-01-16 20:02] LABS: Troponin I 0.026 ng/mL (0.01-0.034)
[2024-01-16 20:36] LABS: C-Reactive Protein Quant 15.4 mg/dL (<1.0)
[2024-01-16] MEDS: HEPARIN 5,000 UNIT/ML VIAL 5000 UNIT SUBCUT (21:14)
[2024-01-17] VITALS (37 sets, daily range): BP systolic 91–134; BP diastolic 57–94; PULSE 78–157; RESP 14–42; TEMP 36.2–36.8; O2SAT 91–99
--- NOTE | 2024-01-17 00:22 | PC.NURSE ---
Pt. admitted by Day RN. oriented to her room. Reported have a fall 3-4 months ago, fall precautions implemented & bed alarm on. Will continue plan of care & monitor.
[2024-01-17] MEDS: SODIUM CHLORIDE 0.9% FLUSH 10 ML IV ×4 (00:31→20:50)
[2024-01-17] MEDS: METOPROLOL TARTRATE 5 MG/5 ML INJ IV (00:31)
--- NOTE | 2024-01-17 01:23 | EKG_ITS ---
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
[2024-01-17] MEDS: dilTIAZem 25 MG/5 ML SDV 10 MG IV (01:31)
--- NOTE | 2024-01-17 02:18 | PC.NURSE ---
Patient transferred to ICU, report given to Sammie MCBRIDE. Last B/P was 97/68 & HR 143.
[2024-01-17] MEDS: DILTIAZEM 125 MG/125 ML PIGGYBACK IV (02:24)
[2024-01-17] MEDS: HYDROCODONE/ACET 5/325 TABLET 1 TAB PO (02:24)
[2024-01-17] MEDS: methylPREDNISolone 125 MG/2 ML VIAL 60 MG IV ×3 (02:25→18:15)
[2024-01-17] MEDS: ONDANSETRON 4 MG/2 ML INJ IV (02:32)
--- NOTE | 2024-01-17 03:20 | PM.CN.EICU ---
History of Present Illness Consult details IF CAMERA ACTIVATED, patient seen via real-time interactive audiovisual communication: Camera activated Date Patient Seen: 01/17/24 Chief complaint: severe chest pains Consent obtained for tele-process supervisor care: Yes Patient Location: ICU Provider location (State): [place] Other participants/roles: RN Narrative: 68 yo female w/ PMHx of tobacco abuse, rheumatoid arthritis admitted 01/15 day shift for pleuritic chest pains. Found to have a moderate pericardial effusion w/ contrast reflux into the hepatic veins on pul CTA; pul CTA was (-) for a PE but did show a LLL basilar infiltrate as well as a 1.6 cm L apical lung nodule. She was transferred to the ICU by the nocturnal tele-hospitalist due to rapid atrial fibrillation. She has just received a diltiazem bolus and just started a diltiazem 5 mg/hr infusion. [facility] Social History household members: other Smoking Status: Former smoker alcohol intake: former Current Medications Current Medications Medications: Home Medications acetaminophen 325 mg tablet 325 mg PO BID 01/16/24 [History Confirmed 01/16/24] ascorbic acid (vitamin C) 250 mg tablet (Vitamin C) 250 mg PO DAILY 01/16/24 [History Confirmed 01/16/24] aspirin 81 mg chewable tablet 1 tab PO DAILY 01/16/24 [History Confirmed 01/16/24] atorvastatin 10 mg tablet 10 mg PO DAILY 01/16/24 [History Confirmed 01/16/24] celecoxib 200 mg capsule 200 mg PO DAILY 01/16/24 [History Confirmed 01/16/24] cyclobenzaprine 5 mg tablet 5 mg PO 3XD PRN Pain (Scale Score 4-6) 01/16/24 [History Confirmed 01/16/24] empagliflozin 10 mg tablet (Jardiance) 10 mg PO DAILY 01/16/24 [History Confirmed 01/16/24] empagliflozin 10 mg tablet (Jardiance) 10 mg PO DAILY 01/16/24 [History Confirmed 01/16/24] famotidine 20 mg tablet 20 mg PO DAILY 01/16/24 [History Confirmed 01/16/24] ferrous sulfate 325 mg (65 mg iron) tablet (FeroSul) 325 mg PO QAM 01/16/24 [History Confirmed 01/16/24] folic acid 1 mg tablet 1 mg PO DAILY 01/16/24 [History Confirmed 01/16/24] insulin glargine 100 unit/mL (3 mL) subcutaneous pen (Lantus Solostar U-100 Insulin) 24 unit SUBCUT QPM 01/16/24 [History Confirmed 01/16/24] magnesium oxide 400 mg (241.3 mg magnesium) tablet 400 mg PO DAILY 01/16/24 [History Confirmed 01/16/24] metformin 500 mg tablet,extended release 24 hr 500 mg PO BID 01/16/24 [History Confirmed 01/16/24] multivitamin 1 tab PO DAILY 01/16/24 [History Confirmed 01/16/24] potassium phosphate, monobasic 500 mg soluble tablet (K-Phos Original) 500 mg PO DAILY 01/16/24 [History Confirmed 01/16/24] thiamine mononitrate (vit B1) 100 mg tablet (Vitamin B-1 (mononitrate)) 100 mg PO DAILY 01/16/24 [History Confirmed 01/16/24] Visit Medications (administered) Generic Name Dose Route Start Last Admin Trade Name Freq PRN Reason Stop Dose Admin Hydrocodone Bitart/Acetaminophen 1 tab 01/16/24 18:21 01/17/24 02:24 Hydrocodone/Acet 5/325 Tablet PO 1 tab Q4H PRN Administration Pain, Moderate (4-6) DILTIAZEM 125 mg in 125 mls @ 5 mls/hr 01/17/24 02:00 01/17/24 02:24 Diltiazem 125 Mg/125 Ml-D5w IV 5 mg/hr TITRATE MADHURI 5 mls/hr Administration Protocol 5 MG/HR Insulin Human Lispro 0 unit 01/16/24 21:00 01/16/24 21:05 Insulin Lispro 100 Unit/Ml 3ml Vial SUBCUT Not Given ACHS MADHURI Protocol Methylprednisolone 60 mg 01/16/24 18:45 01/17/24 02:25 Methylprednisolone 125 Mg/2 Ml Vial IV 60 mg Q8H MADHURI Administration Ondansetron HCl 4 mg 01/16/24 18:21 01/17/24 02:32 Ondansetron 4 Mg/2 Ml Inj IV 4 mg Q8HR PRN Administration Nausea And Vomiting Sodium Chloride 10 ml 01/16/24 22:34 01/17/24 01:32 Sodium Chloride 0.9% Flush IV 10 ml PRN PRN Administration Flush Exam Vital Signs (past 8 hours): - 01/16/24 20:00 01/17/24 00:00 01/17/24 01:31 Temperature 99 F Pulse Rate 107 H 157 H 126 H Respiratory Rate 17 20 Blood Pressure 106/76 128/94 H 113/84 Pulse Oximetry 95 97 Oxygen Flow Rate 0 01/17/24 01:51 01/17/24 02:09 Temperature 98.3 F Pulse Rate 143 H 143 H Respiratory Rate 19 Blood Pressure 97/68 91/71 Pulse Oximetry 96 98 Oxygen Flow Rate 0 Oxygen Delivery Method Room Air Oxygen Flow Rate 0 Const General: healthy appearing and comfortable Resp Effort & Inspection: normal respiratory effort (on RA) and able to speak in complete sentences Cardio Rate: tachycardic (in 160s) Rhythm: abnormal rhythm (atrial fibrillation on monitor) Neuro Other: RASS 0, normal speech Objective Labs 01/16/24 10:57 01/16/24 10:57 Labs: Laboratory Results - last 24 hr 01/16/24 01/16/24 01/16/24 10:57 13:06 19:10 WBC 20.9 H RBC 4.05 Hgb 12.4 Hct 37.4 MCV 92.2 MCH 30.6 MCHC 33.1 RDW 15.2 H Plt Count 523 H Neut % (Auto) 80.9 H Lymph % (Auto) 9.0 L [place] % (Auto) 8.8 Eos % (Auto) 0.7 L Baso % (Auto) 0.6 Neut # (Auto) 07430 H Lymph # (Auto) 1900 [place] # (Auto) 1800 H Eos # (Auto) 200 Baso # (Auto) 100 ESR 39 H PT 12.3 INR 1.1 APTT 38 H Sodium 131 L Potassium 4.7 Chloride 99 Carbon Dioxide 24 BUN 14 Creatinine 0.59 Estimated GFR > 60 BUN/Creatinine Ratio 23.7 H Glucose 161 H Calcium 10.1 Magnesium 2.0 Total Bilirubin 0.6 AST 33 ALT 16 Alkaline Phosphatase 112 Total Creatine Kinase 37 Troponin I < 0.012 < 0.012 0.026 C-Reactive Protein 15.4 H NT-Pro-B Natriuret Pep 375 H Total Protein 8.0 Albumin 4.4 Globulin 3.6 Albumin/Globulin Ratio 1.2 Lipase 77 Rheumatoid Factor 19.5 H Assessment & Plan Assessment and plan (1) Pericardial effusion: Status: Acute Plan: -Echo is pending (2) Community acquired pneumonia: Qualifiers: Laterality: left Lung location: lower lobe of lung Qualified Code(s): J18.9 - Pneumonia, unspecified organism Status: Acute Plan: -Continued ceftriaxone/azithromycin/methylprednisolone (3) Lung nodule seen on imaging study: Status: Acute Plan: -Will need further workup (4) Atrial fibrillation with RVR: Status: Acute Plan: -Continue diltiazem infusion Time-Based Coding :: 25 minutes spent with patient and on the chart (including review of chart, obtaining history, exam, reviewing outside data, placing orders, documenting exam and treatment plan, and counseling patient) on 01/17/2024. ICU best practices: VTE prophylaxis: heparin GI prophylaxis: does not meet criteria
[2024-01-17] MEDS: HEPARIN 5,000 UNIT/ML VIAL 5000 UNIT SUBCUT ×3 (05:45→22:54)
[2024-01-17 06:17] LABS: MRSA (Nasal) PCR NOT DETECTED (Not Detect)
[2024-01-17 06:28] LABS: Add Manual Diff / Slide Review NO; Basophils Absolute Auto 100 /uL (0-100); Basophils Percent Auto 0.3 % (0-2); Eosinophils Absolute Auto 0 /uL (0-450); Eosinophils Percent Auto 0.1 % (2-4); Hemoglobin 12.5 g/dL (12.0-16.0); Lymphocytes Absolute Auto 1400 /uL (1100-4500); Lymphocytes Percent Auto 5.6 % (25-40); Mean Corpuscular Hemoglobin 30.8 PG (26-34); Mean Corpuscular Volume 93.3 fL (80-100); Monocytes Absolute Auto 600 /uL (0-900); Monocytes Percent Auto 2.6 % (3-14); Neutrophils Absolute Auto 22000 /uL (1500-7000); Neutrophils Percent Auto 91.4 % (50-75); Platelet Count 547 X10^3/uL (150-400); Red Blood Cell Count 4.08 X10^6/uL (4.0-5.2); White Blood Cell Count 24.1 X10^3/uL (4.5-11.0)
[2024-01-17 06:42] LABS: BUN Creatinine Ratio 36.8 (6-22); Blood Urea Nitrogen 21 mg/dL (7-17); Calcium 9.2 mg/dL (8.4-10.2); Carbon Dioxide 11 mmol/L (22-32); Chloride 99 mmol/L (98-107); Estimated Glomerular Filt Rate > 60 mL/min (>60); Glucose 219 mg/dL (80-110); HEMOLYSIS 26 (0-50); Potassium 5.1 mmol/L (3.4-5.1); Sodium 131 mmol/L (137-145)
[2024-01-17] MEDS: INSULIN LISPRO 100 UNIT/ML 3ML VIAL SUBCUT ×4 (08:25→20:50)
[2024-01-17] MEDS: ACETAMINOPHEN 325 MG TABLET 650 MG PO (08:27)
--- NOTE | 2024-01-17 08:39 | PM.PN.1 ---
Subjective Subjective Interval history: She went into AFib with RVR necessitating transfer to the ICU for rate control. She cardioverted this morning. S: She feels pretty good this morning. No palpitations or dyspnea. Pleuritic chest pain is improved. An echo is pending. Exam Vital Signs (past 8 hours): - 01/17/24 01:31 01/17/24 01:51 01/17/24 02:09 Temperature 98.3 F Pulse Rate 126 H 143 H 143 H Respiratory Rate 19 Blood Pressure 113/84 97/68 91/71 Pulse Oximetry 96 98 Oxygen Flow Rate 0 01/17/24 02:30 01/17/24 02:30 01/17/24 03:00 Temperature Pulse Rate 142 H Respiratory Rate 20 Blood Pressure 103/67 110/69 Pulse Oximetry 99 Oxygen Flow Rate 01/17/24 03:00 01/17/24 03:30 01/17/24 03:30 Temperature Pulse Rate 145 H 144 H Respiratory Rate 21 26 H Blood Pressure 102/68 Pulse Oximetry 98 98 Oxygen Flow Rate 01/17/24 04:00 01/17/24 04:00 01/17/24 04:30 Temperature 98.0 F Pulse Rate 148 H 142 H Respiratory Rate 22 21 Blood Pressure 104/75 Pulse Oximetry 98 97 Oxygen Flow Rate 0 01/17/24 04:30 01/17/24 05:00 01/17/24 05:00 Temperature Pulse Rate 143 H Respiratory Rate 19 Blood Pressure 109/76 120/76 Pulse Oximetry 97 Oxygen Flow Rate 0 01/17/24 05:30 01/17/24 05:30 01/17/24 06:00 Temperature Pulse Rate 145 H Respiratory Rate 25 H Blood Pressure 120/81 122/77 Pulse Oximetry 97 Oxygen Flow Rate 01/17/24 06:00 01/17/24 06:30 01/17/24 06:30 Temperature Pulse Rate 144 H 141 H Respiratory Rate 20 23 Blood Pressure 132/74 Pulse Oximetry 96 95 Oxygen Flow Rate 0 01/17/24 07:00 01/17/24 07:00 Temperature Pulse Rate 143 H Respiratory Rate 27 H Blood Pressure 115/70 Pulse Oximetry 91 Oxygen Flow Rate Oxygen Delivery Method Room Air Oxygen Flow Rate 0 Narrative Exam Narrative: NAD, alert and oriented. Fluent speech. Lungs are clear, normal rate and effort. Heart is regular, no murmur gallop or rub. Abdomen is soft, non distended. Extremities are free of edema. Objective Labs 01/17/24 06:16 01/17/24 06:16 Labs: Laboratory Results - last 24 hr 01/16/24 01/16/24 01/16/24 10:57 13:06 19:10 WBC 20.9 H RBC 4.05 Hgb 12.4 Hct 37.4 MCV 92.2 MCH 30.6 MCHC 33.1 RDW 15.2 H Plt Count 523 H Neut % (Auto) 80.9 H Lymph % (Auto) 9.0 L Harris % (Auto) 8.8 Eos % (Auto) 0.7 L Baso % (Auto) 0.6 Neut # (Auto) 44778 H Lymph # (Auto) 1900 Harris # (Auto) 1800 H Eos # (Auto) 200 Baso # (Auto) 100 ESR 39 H PT 12.3 INR 1.1 APTT 38 H Sodium 131 L Potassium 4.7 Chloride 99 Carbon Dioxide 24 BUN 14 Creatinine 0.59 Estimated GFR > 60 BUN/Creatinine Ratio 23.7 H Glucose 161 H Calcium 10.1 Magnesium 2.0 Total Bilirubin 0.6 AST 33 ALT 16 Alkaline Phosphatase 112 Total Creatine Kinase 37 Troponin I < 0.012 < 0.012 0.026 C-Reactive Protein 15.4 H NT-Pro-B Natriuret Pep 375 H Total Protein 8.0 Albumin 4.4 Globulin 3.6 Albumin/Globulin Ratio 1.2 Lipase 77 Nasal Screen MRSA (PCR) Rheumatoid Factor 19.5 H 01/17/24 01/17/24 02:16 06:16 WBC 24.1 H RBC 4.08 Hgb 12.5 Hct 38.0 MCV 93.3 MCH 30.8 MCHC 33.0 RDW 15.0 H Plt Count 547 H Neut % (Auto) 91.4 H Lymph % (Auto) 5.6 L Harris % (Auto) 2.6 L Eos % (Auto) 0.1 L Baso % (Auto) 0.3 Neut # (Auto) 65892 H Lymph # (Auto) 1400 Harris # (Auto) 600 Eos # (Auto) 0 Baso # (Auto) 100 ESR PT INR APTT Sodium 131 L Potassium 5.1 Chloride 99 Carbon Dioxide 11 L BUN 21 H Creatinine 0.57 Estimated GFR > 60 BUN/Creatinine Ratio 36.8 H Glucose 219 H Calcium 9.2 Magnesium Total Bilirubin AST ALT Alkaline Phosphatase Total Creatine Kinase Troponin I C-Reactive Protein NT-Pro-B Natriuret Pep Total Protein Albumin Globulin Albumin/Globulin Ratio Lipase Nasal Screen MRSA (PCR) Not detected Rheumatoid Factor PFSH Social History household members: other Smoking Status: Former smoker alcohol intake: former Assessment & Plan Assessment & Plan narrative: 1. Pleuritic chest pain which is likely rheumatoid pleuritis, present on admission and active. 2. 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 3. Possible pneumonia, present on admission and active. 4. Uncontrolled rheumatoid arthritis, present on admission and active. 5. DM 2, present on admission and active. 6. New atrial fibrillation with RVR, resolved this morning. PLAN: -empiric antibiotics with ceftriaxone and azithromycin. Short 3 in 5 day course. -blood cultures we will be followed. -continue methylprednisolone 60 mg IV q.8 hours. CRP is 15.4: Rheumatoid factor is 19.5. -we will discuss with rheumatology tomorrow. -we will discuss with Cardiology after echo tomorrow. -transfer out of ICU, step diltiazem drip, start diltiazem CD 120 mg p.o. daily. With her atrial fibrillation and pericarditis, she will require a 2nd midnight of hospital level care and is appropriate for inpatient status. Continue steroids and monitor. She was full resuscitation, confirmed time of admission. Time-Based Coding :: 30 min spent with patient and on the chart (including review of chart, obtaining history, exam, reviewing outside data, placing orders, documenting exam and treatment plan, and counseling patient) on 01/16.
[2024-01-17] MEDS: dilTIAZem CD 120 MG CAP PO (11:19)
[2024-01-17] MEDS: CELECOXIB 200 MG CAPSULE PO (12:09)
[2024-01-17] MEDS: ASPIRIN 81 MG CHEW TAB PO (12:09)
[2024-01-17] MEDS: FOLIC ACID 1 MG TABLET PO (12:09)
[2024-01-17] MEDS: INSULIN GLARGINE 100 UNIT/ML 3ML PEN 24 UNIT SUBCUT (12:09)
[2024-01-17] MEDS: ASCORBIC ACID 500 MG TABLET 250 MG PO (12:09)
--- NOTE | 2024-01-17 14:50 | CM.DANOTE ---
Patient is a 68 yo female who was admitted INPT Status for Chest Pain r/o and possible pneumonia. Pt has [facility] for insurance and her PCP is Dr. Castillo from [facility]. EMR was reviewed. Per , pt with hx of Reumathoid Arthritis that has not been managed by medication for 2 years and moved from [place] to [place] about 2 years ago. Pt not a very good historian and admitted for chest pain r/o, to have Echo, and r/o pneumonia. Pt was on Dilt Drip but converted. SW met bedside with pt and her caregiver Ruthie from [place] [address] Adult Family [facility] and explained role and pt confirms that her DPOA is Shayan Daley [phone]. 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 Pt preference is to return to [facility] with [facility] when stable for discharge. Ruthie confirms that pt has a hx of [facility] and then Assisted Living at [facility] and then ended up moving into [facility]. Pt gets her medications through [facility] and request is to have medications sent to that pharmacy at d/c and they will need discharge summary and signed med list faxed to them at [phone] and Ruthie will provide transport back at discharge and can be reached at [phone]. PCP is now Dr. Castillo at [facility]. SW secure emailed [facility] to alert them to pt being admitted and to inquire if new orders or just Resumption needed at d/c and emailed clinicals to review for her admission. Plan: SW to follow closely for plan of discharge back to [place] [address] with continued [facility] when medically stable. SW to fax d/c summary and signed med list to [facility] at d/c. RAMÍREZ Peter Discharge Planning/Care Management CM Discharge Assessment Start: 01/17/24 14:22 Freq: Status: Active Protocol: Document 01/17/24 14:22 BF (Rec: 01/17/24 14:50 BF [id number]) Discharge Planning Assessment Assigned Python Django Developer RAMÍREZ Williamson DPOA/Assigned Designee Name friend Shayan Daley Advance Directives? Yes Advance Directives on File No History Provided By Patient,Friend,Medical Record Has Patient been admitted in last 30 No days? Prior Living Arrangements Adult Family Home Household Members none Type of transporation used prior to Relies on Others admit Facility Name Admitted From: [facility] Willing to Return to Facility? Yes Independent with ADL's Yes: somewhat Is patient alert and oriented? 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 # of Python Django Developer Review Status In Process Please Provide Date Initial DC 01/17/24 Assessment Was Performed Next Review Type Continued Stay Review
--- NOTE | 2024-01-17 15:15 | PC.NURSE ---
Day Shift Note Patient alert and oriented, slightly forgetful. On diltiazem gtt 15 mg/hr at start of shift, Afib RVR in the 130s-140s. Pt converted to NSR in the 80s at 0801, Dr. Vasquez notified. PO diltiazem given and IV diltiazem stopped, see emar. Pt reported that chest pain is still present but improved from earlier today, tylenol administered. Up to bathroom SBA with FWW. Call light within reach, using appropriately to make needs known. Bed alarm on for safety.
[2024-01-17] MEDS: cefTRIAXone 1,000 MG in SODIUM CHLORIDE 0.9% 100 ML 200 MG IV (17:47)
[2024-01-17] MEDS: AZITHROMYCIN 500 MG in DEXTROSE 5% IN WATER 250 ML 250 MG IV (18:15)
[2024-01-18] VITALS (19 sets, daily range): BP systolic 108–152; BP diastolic 63–82; PULSE 82–162; RESP 19–52; TEMP 36.2–36.4; O2SAT 94–99
[2024-01-18] MEDS: methylPREDNISolone 125 MG/2 ML VIAL 60 MG IV (02:55)
[2024-01-18] MEDS: ONDANSETRON 4 MG/2 ML INJ IV ×2 (05:20→22:05)
[2024-01-18 06:19] LABS: BUN Creatinine Ratio 35.2 (6-22); Blood Urea Nitrogen 19 mg/dL (7-17); Calcium 9.6 mg/dL (8.4-10.2); Carbon Dioxide 22 mmol/L (22-32); Chloride 101 mmol/L (98-107); Estimated Glomerular Filt Rate > 60 mL/min (>60); Glucose 197 mg/dL (80-110); HEMOLYSIS < 15 (0-50); Hematocrit 34.3 % (36-46); Hemoglobin 11.4 g/dL (12.0-16.0); Mean Corpuscular HGB Conc 33.1 % (30-36); Mean Corpuscular Hemoglobin 30.2 PG (26-34); Platelet Count 564 X10^3/uL (150-400); Potassium 4.9 mmol/L (3.4-5.1); Red Blood Cell Count 3.77 X10^6/uL (4.0-5.2); Red Cell Distribution Width 14.6 % (11.6-14.8); Sodium 132 mmol/L (137-145)
[2024-01-18 06:23] LABS: Add Manual Diff / Slide Review YES; White Blood Cell Count 41.6 X10^3/uL (4.5-11.0)
[2024-01-18] MEDS: HEPARIN 5,000 UNIT/ML VIAL 5000 UNIT SUBCUT ×3 (06:29→21:57)
[2024-01-18 06:39] LABS: Neutrophils Absolute Manual 37856 /uL (3000-5900); Total Cells Counted 100
[2024-01-18 06:40] LABS: RBC Morphology Normal Morphology
--- NOTE | 2024-01-18 08:13 | P.PN_ITS ---
Subjective Subjective Interval history: She was admitted with pleuritic chest pain and pericardial effusion consistent with pleuritis and pericarditis of rheumatoid arthritis. She has been untreated for her rheumatoid arthritis with the exception of nonsteroidals for the past several years. She was placed on high dose steroids and had relatively quick improvement of her symptoms. She does have diabetes and developed hyperglycemia from steroids as well. Subjective: She was feeling better today. Her pleuritic chest pain has resolved. No dyspnea. Exam Vital Signs (past 8 hours): - 01/18/24 04:00 01/18/24 04:00 Temperature 97.5 F L Pulse Rate 90 Respiratory Rate 22 Blood Pressure 116/65 Pulse Oximetry 96 Oxygen Flow Rate 0 Oxygen Delivery Method Room Air Oxygen Flow Rate 0 Narrative Exam Narrative: NAD, alert and oriented. Fluent speech. Lungs are clear, normal rate and effort. Heart is regular, no murmur gallop or rub. No rub. Abdomen is soft, non distended. Extremities are free of edema. Objective Imaging Echo: Radiologist's impression: The ejection fraction is >75%. Diastolic parameters suggest probable normal left ventricular diastolic function and normal filling pressures. The right ventricle is normal in size and function. No significant valvular abnormalities. Pulmonary artery pressures cannot be estimated because of the lack of a measurable TR jet velocity. The IVC is of normal diameter and collapses greater than 50% with a sniff. This suggests a low right atrial pressure of 3 mm Hg. There is a moderate to large pericardial effusion noted. There are no echocardiographic indications of cardiac tamponade. There is a moderate left-sided pleural effusion. Labs 01/18/24 05:54 01/18/24 05:54 Labs: Laboratory Results - last 24 hr 01/18/24 05:54 WBC 41.6 H* D RBC 3.77 L Hgb 11.4 L Hct 34.3 L MCV 91.0 MCH 30.2 MCHC 33.1 RDW 14.6 Plt Count 564 H Neut % (Auto) Not Reportable Lymph % (Auto) Not Reportable [place] % (Auto) Not Reportable Eos % (Auto) Not Reportable Baso % (Auto) Not Reportable Lymph # (Auto) Not Reportable [place] # (Auto) Not Reportable Baso # (Auto) Not Reportable Total Counted 100 Seg Neutrophils % 88.0 H Band Neutrophils % 3.0 Lymphocytes % (Manual) 6.0 L Monocytes % (Manual) 2.0 Metamyelocytes % 1.0 H Neutrophils # (Manual) 35252 H RBC Morphology Normal morphology Sodium 132 L Potassium 4.9 Chloride 101 Carbon Dioxide 22 BUN 19 H Creatinine 0.54 Estimated GFR > 60 BUN/Creatinine Ratio 35.2 H Glucose 197 H Calcium 9.6 [facility] Social History household members: none Smoking Status: Former smoker alcohol intake: former Assessment & Plan Assessment & Plan narrative: 1. 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 2. 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 3. Possible pneumonia, present on admission and active. Short course antibiotics. 4. Uncontrolled rheumatoid arthritis, present on admission and active. 5. DM 2, present on admission and active. 6. New atrial fibrillation with RVR, resolved on 01/16. 7. Significant leukocytosis (since started on steroids), new and active. PLAN: -empiric antibiotics with ceftriaxone (5 days) and azithromycin (3 days). Short course. -blood cultures we will be followed. Negative on 01/17. -discontinue methylprednisolone 60 mg IV q.8 hours. CRP is 15.4: Rheumatoid factor is 19.5. Transition to prednisone 40 mg daily -we will discuss with rheumatology today. -we will discuss with Cardiology today. -transfered out of ICU, stopped diltiazem drip, start diltiazem CD 120 mg p.o. daily. -physical therapy evaluation. She was ambulatory at her adult family home. With her atrial fibrillation and pericarditis, she will require a 2nd midnight of hospital level care and is appropriate for inpatient status. Continue steroids and monitor. NADER/Dispo: Return to adult family home 01/18 if able to ambulate and white count is stable to improved. Time-Based Coding :: 20 min spent with patient and on the chart (including review of chart, obtaining history, exam, reviewing outside data, placing orders, documenting exam and treatment plan, and counseling patient) on 01/17.
[2024-01-18] MEDS: ASPIRIN 81 MG CHEW TAB PO (08:28)
[2024-01-18] MEDS: CELECOXIB 200 MG CAPSULE PO (08:28)
[2024-01-18] MEDS: ATORVASTATIN 20 MG TABLET 10 MG PO (08:28)
[2024-01-18] MEDS: ASCORBIC ACID 500 MG TABLET 250 MG PO (08:28)
[2024-01-18] MEDS: INSULIN LISPRO 100 UNIT/ML 3ML VIAL SUBCUT ×3 (08:29→17:34)
[2024-01-18] MEDS: predniSONE 20 MG TABLET 40 MG PO (08:29)
[2024-01-18] MEDS: FOLIC ACID 1 MG TABLET PO (08:29)
[2024-01-18] MEDS: dilTIAZem CD 120 MG CAP PO (08:29)
[2024-01-18] MEDS: INSULIN GLARGINE 100 UNIT/ML 3ML PEN 24 UNIT SUBCUT (08:31)
[2024-01-18] MEDS: SODIUM CHLORIDE 0.9% FLUSH 10 ML IV ×2 (08:32→21:57)
--- NOTE | 2024-01-18 11:12 | DIET.CONS ---
Dietary Consultation Note Admission Date: 01/16/2024 17:34 Assessment: 68 y F admitted for chest pain. Nutrition screened for BMI underweight for age. Met with pt at bedside who reports appetite suppression related to DM medication. Initially lost 15-20 lb 1-2 yrs ago when started on medication. Has difficulty tolerating food between breakfast and dinner d/t decreased appetite, but is able to tolerate sips of Ensure. Is getting CGM shortly, right now checks BG 4x/d with numbers ranging 145-300, but usually upper 100s-200s. Has seen [facility] this past May once. Diet recall: Protein cereal w/ milk 1-1.5 Ensures, original/max protein 75-50% of dinner provided at adult home Ht: 154.94 cm Wt: 44.906 kg BMI: 18.7 UBW: 53-54 kg 1-2 yrs ago per pt report Last BM: 01/15/24 (01/16/24 18:21) MNA: 11 Jose Score: 19 Diet: 01/16/24 Dinner General (Regular) Diet Diet Modifications: Nutrition Percent Meal Consumed 100% 01/18/24 08:00 Percent Meal Consumed 25% 01/17/24 10:00 Labs: RBC 3.77 X10^6/uL (4.0-5.2) L 01/18/24 05:54 Hgb 11.4 g/dL (12.0-16.0) L 01/18/24 05:54 Hct 34.3 % (36-46) L 01/18/24 05:54 Creatinine 0.54 mg/dL (0.52-1.04) 01/18/24 05:54 NT-Pro-B Natriuret Pep 375 pg/mL (<125) H 01/16/24 10:57 Nutrition Diagnosis: Underweight BMI r/t decreased appetite aeb BMI 18.7 (underweight for age) Altered lab values (glucose) r/t endocrine dysfunction aeb glucose poc 145-346, steroids Interventions: 1. Ensure MAX protein BID -Discussed different ONS options upon d/c, adequate intake, small freq snacks during daytime 2. Provided scheduling # for [facility] for f/u [facility]t Monitoring/Evaluations: BG, po intakes Electronically Signed by: Rica Morse 01/18/24 11:12 Clinical Dietitian [address] [place] [address]
--- NOTE | 2024-01-18 11:50 | PT.IIE ---
Current Diagnoses Other pericardial effusion (noninflammatory) (01/16/24) Unspecified atrial fibrillation (01/16/24) Pneumonia, unspecified organism (01/16/24) Solitary pulmonary nodule (01/16/24) Physical Therapy Inpatient Evaluation/Re-Eval M1 PT/OT-IP Prior Functional Status Start: 01/18/24 09:16 Freq: Status: Active Protocol: Document 01/18/24 11:06 MB (Rec: 01/18/24 11:50 MB [id number]) Medical Review Prior Functional Status Medical History Reviewed Yes Communication Unsure baseline diet Mobility and Gait Mod I with RW Activities of Daily Living and IADL's Pt reports I at adult care facility Social History Living Arrangements Adult Family Home Number of Floors (Floors) One Floor Number of Stairs To Enter/Railing? 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 She has a hospital bed but does not recall if it has bed rails. M2 PT-IP Current Condition Start: 01/18/24 09:16 Freq: Status: Active Protocol: Document 01/18/24 11:06 MB (Rec: 01/18/24 11:50 MB [id number]) Physical Therapy Current Condition Current Condition Evaluation Date 01/18/24 Treatment Diagnosis CP, new onset a-fib, RA, old right shoulder fracture M3 PT-IP Subjective Start: 01/18/24 09:16 Freq: Status: Active Protocol: Document 01/18/24 11:06 MB (Rec: 01/18/24 11:50 MB [id number]) Subjective Physical Therapy Visit Type Type Initial Evaluation Visit Start Time 11:06 Visit Stop Time 11:26 Number of LADLE REPAIRER Visits 0 Physical Therapy Visit Comments Patient Comments Pt states that she hopes to talk with the arthritis doctor . Therapy Pain Assessment Pain When Pain Assessed At Rest Pain Present Pain Present Denied Pain M4 PT-IP Mobility and Gait Start: 01/18/24 09:16 Freq: Status: Active Protocol: Document 01/18/24 11:06 MB (Rec: 01/18/24 11:50 MB [id number]) PT-Bed Mobility Assessment Sit to Supine Sit to Supine Independent Scooting Scooting to Edge of Bed Independent PT-Transfer Assessment Sit to and From Stand Sit to and from Stand Standby Assistance Equipment Transfer Assistive Device Front Wheeled Walker Orthotic/Prosthetic Devices or Brace: No Transfers Transfer Destination Bed Transfer Technique Ambulation Transfer Ability Level of Assist Standby Assistance Comments Mobility Comments Pt states that she does not like the RW and wants to walk without it and pushes it away, also asks to stay in the bed once transferred into it Gait Assessment Gait Gait Assistance Required: Standby Assistance Distance (Feet) 20 Able to Maintain Weight Bearing Status Yes During Gait Assistive Devices Assistive Device Front Wheeled Walker Orthotic/Prosthetic Devices or Brace: No Gait Deviations General Gait Pattern Decreased Feet Clearance Factors Limiting Gait Function Factors Limiting Gait Function Poor Balance,Poor Safety Awareness Comments Gait Comments Pt gait trains 20' with RW and 20' without, pushing walker away, pt agitated by tele line and pulling it around her PT-Balance Assessment Sitting Balance and Reactions Static Sitting Balance Ability Normal Dynamic Sitting Balance Ability Normal Standing Balance and Reactions Static Standing Balance Ability Normal Dynamic Standing Balance Ability Good Device Used RW or no AD M5 PT-IP Objective Assessments Start: 01/18/24 09:16 Freq: Status: Active Protocol: Document 01/18/24 11:06 MB (Rec: 01/18/24 11:50 MB [id number]) Orientation Orientation/Cognition Level of Alertness Alert Orientation Name,Age,Birthday,Month,Year, Place,Situation Language Function Ability No Deficits Noted Safety Awareness Decreased Safety Awareness Comments Pt does not answer all questions and does not answer all questions ask, may benefit from cognitive testing Gross Range of Motion Upper Extremity ROM Impairments No deficits noted with function but reports of right shoulder fracture and pt getting HHOT prior to admission Lower Extremity ROM Assessment Within Functional Limits Strength Lower Extremity Strength Assessment Within Functional Limits M6 PT-IP Treatment Start: 01/18/24 09:16 Freq: Status: Active Protocol: Document 01/18/24 11:06 MB (Rec: 01/18/24 11:50 MB [id number]) Physical Therapy Treatment Education Education Provided Safety M7 PT-IP Assessment and Plan Start: 01/18/24 09:16 Freq: Status: Active Protocol: Document 01/18/24 11:06 MB (Rec: 01/18/24 11:50 MB [id number]) PT Summary Assessment and Plan Potential Rehabilitation Potential Good Status of Condition at Evaluation Evolving Summary Impairments ROM,Balance,Cognition, Transfers,Gait,Activity Tolerance Progress Towards Goals Progressing Toward Goals Assessment Summary Pt is a 68 y/o female who moves well with PT today. Pt does not always communicate clearly about LADLE REPAIRER. During gait , she states she does not like the RW and she pushes it away . She mobilizes relatively well. Her HR increases to the low 100s with mobility. Anticipate d/c to adult care facility and services as appropriate. Goals Transfer Goal Independent,Four Wheeled Walker Gait Goal Independent,Four Wheel Walker Gait Distance 100 Days to Meet Goals 3 Frequency of Treatment Frequency Of Treatment Once a Day Treatment Plan Physical Therapy Treatment Plan Bed Mobility Training,Transfer Training,Gait Training, Therapeutic Exercise,Balance Retraining,Discharge Planning, Hot or Cold Pack,Neuromuscular Re-ed,Coordination Retraining ,Manual Therapy Weight Bearing Status Weight Bearing Status Weight Bear as Tolerated Recommendations To Nursing Amount of Assist Needed 1 Person Assist Discharge Recommendations PT Discharge Recommendations Home with Assistance,Home Health Transportation Needs at Discharge Private Vehicle
[2024-01-18] MEDS: INSULIN LISPRO 100 UNIT/ML 3ML VIAL 7 UNIT SUBCUT ×2 (11:54→17:34)
--- NOTE | 2024-01-18 13:44 | CM.DPC ---
DCP Cont: Per MD, pt improving but likely not stable for discharge until tomorrow Fri and to work with PT today. Per PT, recommending safe d/c back to [facility] Family Home with HH. SW confirmed with [facility] that they only need Resumption of ST/OT/PIPE LINE WALKER at discharge and discharge summary. Plan: SW to follow for plan of discharge back to [place] [address] with Resume [facility] likely tomorrow Fri via [facility] PEARSON. Teri Mari MSW
--- NOTE | 2024-01-18 17:17 | EKG_ITS ---
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
[2024-01-18] MEDS: AZITHROMYCIN 500 MG in DEXTROSE 5% IN WATER 250 ML 250 MG IV (17:40)
[2024-01-18] MEDS: ACETAMINOPHEN 325 MG TABLET 650 MG PO (18:32)
[2024-01-18] MEDS: cefTRIAXone 1,000 MG in SODIUM CHLORIDE 0.9% 100 ML 200 MG IV (18:56)
[2024-01-19] VITALS: BP 136/82; PULSE 93; RESP 17; TEMP 35.9; O2SAT 98
[2024-01-19 04:00] VITALS: BP 148/87; PULSE 99; RESP 19; TEMP 36.7; O2SAT 94
[2024-01-19 04:56] LABS: Hematocrit 32.9 % (36-46); Hemoglobin 10.8 g/dL (12.0-16.0); Mean Corpuscular Volume 91.1 fL (80-100); Platelet Count 551 X10^3/uL (150-400); Red Blood Cell Count 3.61 X10^6/uL (4.0-5.2); Red Cell Distribution Width 14.9 % (11.6-14.8)
[2024-01-19 05:09] LABS: Add Manual Diff / Slide Review YES; White Blood Cell Count 38.7 X10^3/uL (4.5-11.0)
[2024-01-19 05:25] LABS: Alanine Aminotransferase 47 IU/L (<35); Albumin 3.8 g/dL (3.5-5.0); Albumin Globulin Ratio 1.2 (1.0-2.8); Alkaline Phosphatase 105 U/L (38-126); Aspartate Aminotransferase 64 IU/L (14-36); BUN Creatinine Ratio 32.6 (6-22); Bilirubin Total 0.4 mg/dL (0.2-1.3); Blood Urea Nitrogen 14 mg/dL (7-17); Calcium 8.8 mg/dL (8.4-10.2); Carbon Dioxide 25 mmol/L (22-32); Chloride 104 mmol/L (98-107); Estimated Glomerular Filt Rate > 60 mL/min (>60); Globulin 3.1 g/dL (1.7-4.1); Glucose 102 mg/dL (80-110); HEMOLYSIS 25 (0-50); Potassium 4.1 mmol/L (3.4-5.1); Sodium 134 mmol/L (137-145); Total Protein 6.9 g/dL (6.3-8.2)
[2024-01-19 05:58] LABS: Neutrophils Absolute Manual 35604 /uL (3000-5900); Total Cells Counted 100
[2024-01-19 05:59] LABS: Platelet Estimate Increased on smear; RBC Morphology Normal Morphology
[2024-01-19] MEDS: HEPARIN 5,000 UNIT/ML VIAL 5000 UNIT SUBCUT (06:43)
--- NOTE | 2024-01-19 07:04 | PC.NURSE ---
[employer] Director Note-Patient had a restful night. Mild shortness of breath, lightheadedness, and nausea when up to BSC, resolved with rest and Zofran. HR remained SR/ST until 0625 when she went into rapid A-fib/flutter HR 150s for approximately 6 minutes, patient was sleeping and asymptomatic when woke up.
[2024-01-19 08:00] VITALS: BP 139/74; PULSE 92; RESP 22; TEMP 36.9; O2SAT 98
[2024-01-19] MEDS: dilTIAZem CD 120 MG CAP PO (08:46)
[2024-01-19] MEDS: INSULIN GLARGINE 100 UNIT/ML 3ML PEN 24 UNIT SUBCUT (08:46)
[2024-01-19] MEDS: INSULIN LISPRO 100 UNIT/ML 3ML VIAL 7 UNIT SUBCUT ×2 (08:46→12:37)
[2024-01-19] MEDS: ATORVASTATIN 20 MG TABLET 10 MG PO (08:46)
[2024-01-19] MEDS: CELECOXIB 200 MG CAPSULE PO (08:46)
[2024-01-19] MEDS: predniSONE 20 MG TABLET 40 MG PO (08:46)
[2024-01-19] MEDS: ASPIRIN 81 MG CHEW TAB PO (08:46)
[2024-01-19] MEDS: FOLIC ACID 1 MG TABLET PO (08:46)
[2024-01-19] MEDS: ASCORBIC ACID 500 MG TABLET 250 MG PO (08:47)
[2024-01-19] MEDS: SODIUM CHLORIDE 0.9% FLUSH 10 ML IV (08:49)
--- NOTE | 2024-01-19 09:30 | PT.IPTN ---
Current Diagnoses Other pericardial effusion (noninflammatory) (01/16/24) Unspecified atrial fibrillation (01/16/24) Pneumonia, unspecified organism (01/16/24) Solitary pulmonary nodule (01/16/24) Physical Therapy Treatment Note M2 PT-IP Current Condition Start: 01/18/24 09:16 Freq: Status: Active Protocol: Document 01/18/24 11:06 MB (Rec: 01/18/24 11:50 MB [id number]) Physical Therapy Current Condition Current Condition Evaluation Date 01/18/24 Treatment Diagnosis CP, new onset a-fib, RA, old right shoulder fracture M3 PT-IP Subjective Start: 01/18/24 09:16 Freq: Status: Active Protocol: Document 01/19/24 09:30 AB (Rec: 01/19/24 12:15 AB [id number]) Subjective Physical Therapy Visit Type Type Treatment Note Visit Start Time 09:30 Visit Stop Time 09:45 Number of HOSPITAL RECRUITER Visits 0 Physical Therapy Visit Comments Patient Comments agreeable to do PT M4 PT-IP Mobility and Gait Start: 01/18/24 09:16 Freq: Status: Active Protocol: Document 01/19/24 09:30 AB (Rec: 01/19/24 12:15 AB [id number]) PT-Bed Mobility Assessment Supine to Sit Supine to Sit Independent Sit to Supine Sit to Supine Independent PT-Transfer Assessment Sit to and From Stand Sit to and from Stand Standby Assistance Equipment Transfer Assistive Device None,Gait Belt Orthotic/Prosthetic Devices or Brace: No Comments Mobility Comments pt supine in bed and agreeable to do PT. supine to sit mod I. refuses to use FWW but agreed to use 4WW but stated that she does not use his 4WW much at home. completed sit to stand sBA and ambulated without AD ~ 35 ft SBA to occasional CGA. pt presents with antalgic shuffling gait. pt agreed to use 4WW and ambulated in room SBA ~ 35 ft. pt with steadier gait and less antalgic gait. pt requested to go back to bed. sit to supine mod I. call light and table placed within reach. Gait Assessment Gait Gait Assistance Required: Standby Assistance Distance (Feet) 35 Able to Maintain Weight Bearing Status Yes During Gait Assistive Devices Assistive Device None,Gait Belt,4 Wheeled Walker Orthotic/Prosthetic Devices or Brace: No Gait Deviations General Gait Pattern Antalgic,Decreased Stride Length,Decreased Feet Clearance Factors Limiting Gait Function Factors Limiting Gait Function Decreased Activity Tolerance, Decreased Strength,Difficulty Following Directions,Pain,Poor Balance,Poor Safety Awareness M5 PT-IP Objective Assessments Start: 01/18/24 09:16 Freq: Status: Active Protocol: Document 01/18/24 11:06 MB (Rec: 01/18/24 11:50 MB [id number]) Orientation Orientation/Cognition Level of Alertness Alert Orientation Name,Age,Birthday,Month,Year, Place,Situation Language Function Ability No Deficits Noted Safety Awareness Decreased Safety Awareness Comments Pt does not answer all questions and does not answer all questions ask, may benefit from cognitive testing Gross Range of Motion Upper Extremity ROM Impairments No deficits noted with function but reports of right shoulder fracture and pt getting HHOT prior to admission Lower Extremity ROM Assessment Within Functional Limits Strength Lower Extremity Strength Assessment Within Functional Limits M6 PT-IP Treatment Start: 01/18/24 09:16 Freq: Status: Active Protocol: Document 01/19/24 09:30 AB (Rec: 01/19/24 12:15 AB [id number]) Physical Therapy Treatment Education Education Provided Safety M7 PT-IP Assessment and Plan Start: 01/18/24 09:16 Freq: Status: Active Protocol: Document 01/19/24 09:30 AB (Rec: 01/19/24 12:15 AB [id number]) PT Summary Assessment and Plan Potential Rehabilitation Potential Fair Summary Impairments Pain,ROM,Strength,Balance, Coordination,Sensation,Tone, Cognition,Bed Mobility, Transfers,Gait,Activity Tolerance Progress Towards Goals Slow Progress due to Activity Tolerance Assessment Summary pt requiring SBA to CGA with mobility and recommending use of 4WW at this time. pt may go home when medically stable and may benefit from HHPT. Goals Transfer Goal Independent,Four Wheeled Walker Gait Goal Independent,Four Wheel Walker Gait Distance 100 Days to Meet Goals 3 Frequency of Treatment Frequency Of Treatment Once a Day Treatment Plan Physical Therapy Treatment Plan Bed Mobility Training,Transfer Training,Gait Training, Therapeutic Exercise,Balance Retraining,Discharge Planning, Hot or Cold Pack,Neuromuscular Re-ed,Coordination Retraining ,Manual Therapy Recommendations To Nursing Amount of Assist Needed 1 Person Assist Discharge Recommendations PT Discharge Recommendations Home with Assistance,Home Health Transportation Needs at Discharge Private Vehicle
--- NOTE | 2024-01-19 10:56 | CM.DPC ---
DCP Discharge [facility] Per MD, pt is medically stable to discharge back to her [facility] today and outpt f/u and resume HH. Per RN, Adult [facility] Home requesting meds be sent to [facility] at fax [phone] marked Stat and with [facility] listed so meds are filled in time for pt's next doses tomorrow. ALONDRA faxed printed scripts of new meds to [facility] with information above. ALONDRA faxed signed med list and MD prog note (d/c summ not yet available) to Ruthie at [facility] at fax [phone] and called Ruthie at [phone] and she is aware of discharge and will call [facility] to confirm they will fill them stat. Ruthie can provide transport at 1300 and appreciative of Resumption of [facility]. ALONDRA updated [facility] on pt discharge today and provided Resumption Orders per their request and waiting for d/c summ to fax as well. ALONDRA met bedside with pt and updated on above and she remains in agreement of discharge back to her [facility] and resume [facility]. ALONDRA updated RN. Plan: Patient to d/c back to [facility] today via [facility] POV around 1300 and [facility] to Resume OT/ST/CUSTOMER CARE SPECIALIST. ARMÍREZ Peter
--- NOTE | 2024-01-19 11:12 | PM.DS.1 ---
History of Present Illness History of Present Illness Date Patient Seen: 01/19/24 Time Patient Seen: 08:15 Date of Onset of Symptoms: 01/16/24 Chief complaint: Severe chest pain Narrative: 68-year-old female with history of rheumatoid arthritis (not on immunosuppressant meds), NIDDM presents for left-sided chest pain. Pain is constant, aggravating, worse when she lays on her left side. Nothing makes it better or worse. No medications taken prior to arrival. Patient states that she moved from [place] to [place]. Prior to moving from [place] she was told that she has a lung nodule that would need to be CT'd, however this procedure was never done. Patient denies shortness of breath, palpitations, lightheadedness. Additional information: She has had progressive pleuritic chest pain for the past several weeks. He is now very difficult to take much of a breath at all. She has a history of rheumatoid arthritis and used to be on medications but has not been on medications for RA for least the last 2-3 years. Her joints have had increased pain as well she has inability to move her right hand at all due to arthritis. She did have a fall distantly and fractured her right shoulder. This is remains relatively immobile. She denies a cough or shortness breath. Imaging did reveal a possible infiltrate as well as a lung nodule. She was a moderate pericardial effusion as well. These findings were discussed with Cardiology at [facility] her recommended an ultrasound. She denies any abdominal pain or other complaints. She lives in an adult family home, having moved up from [place] about 2 years ago. 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 Discharge provider: Doug Freeman MD Summary Hospital Course Discharge Diagnosis: 1. 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 2. 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 3. Possible pneumonia, present on admission and active. Short course antibiotics. 4. Uncontrolled rheumatoid arthritis, present on admission and active. 5. DM 2, present on admission and active. 6. New atrial fibrillation with RVR, resolved on 01/16, recurrent 01/18 and resolved. 7. Significant leukocytosis (since started on steroids), new and active 8. Chronic right proximal humerus fracture. 9. Constipation Hospital Course: The patient was admitted and treated with IV steroids for rheumatic pleuritis and pericarditis with pericardial effusion, without tamponade. She was also treated with IV antibiotics for probable pneumonia. Blood cultures were negative during the hospitalization. She has not been under the care of Rheumatology and had a prolonged period of uncontrolled symptoms prior to admission in her joints. She is normally ambulatory in her adult family home and was ambulatory with physical therapy during hospitalization. She developed atrial fibrillation during her hospitalization and was placed on a diltiazem infusion in the ICU, and transition to oral diltiazem CD 100 20 mg daily. She was continued on aspirin at discharge with a CHADS2 Vasc score of 2. Anticoagulation may be considered after discharge home when medically stable. Case is reviewed with Rheumatology and Cardiology and arrangements for outpatient follow-up were advised, to be arranged through her PCP. Her elevated white blood count was attributed to steroids and outpatient follow-up is also advised. Arrangements were made for discharge home to her adult family home on outpatient bowel regimen. No other issues arose in the patient is enthusiastic to return home. Echo 01/16/2024: Radiologist's impression: The ejection fraction is >75%. Diastolic parameters suggest probable normal left ventricular diastolic function and normal filling pressures. The right ventricle is normal in size and function. No significant valvular abnormalities. Pulmonary artery pressures cannot be estimated because of the lack of a measurable TR jet velocity. The IVC is of normal diameter and collapses greater than 50% with a sniff. This suggests a low right atrial pressure of 3 mm Hg. There is a moderate to large pericardial effusion noted. There are no echocardiographic indications of cardiac tamponade. There is a moderate left-sided pleural effusion. CT angiogram chest 01/16/2024: Possible airspace disease in the left lower lung, with a small adjacent effusion. Suspicious spiculated nodule in the left lung apex. This is likely amenable sampling with interventional radiology consultation. Moderate pericardial effusion, with trace pericardial enhancement. Contrast reflux in hepatic veins, suggestive of poor forward cardiac flow through the right heart. No acute pulmonary embolism. Other findings above. Chest x-ray 01/16/2024: No acute cardiopulmonary abnormality is seen. Status at Discharge Cognitive/behavioral status at discharge: oriented Functional status at discharge: independent ambulation Overall status at discharge: patient is back to baseline Time Spent with Patient Time spent: Greater than 30 minutes Exam Vital Signs (past 8 hours): - 01/19/24 04:00 01/19/24 08:00 01/19/24 08:00 Temperature 98.0 F 98.4 F Pulse Rate 99 H 92 H Respiratory Rate 19 22 Blood Pressure 148/87 H 139/74 Pulse Oximetry 94 98 Oxygen Delivery Method Room Air Oxygen Flow Rate 0 0 Oxygen Delivery Method Room Air Oxygen Flow Rate 0 Narrative Exam Narrative: NAD, alert and oriented. Fluent speech. Lungs are clear, normal rate and effort. Heart is regular, no murmur gallop or rub. No rub. Abdomen is soft, non distended. Extremities are free of edema. Objective Labs 01/19/24 04:33 01/19/24 04:33 Labs: Laboratory Results - last 24 hr 01/19/24 04:33 WBC 38.7 H* RBC 3.61 L Hgb 10.8 L Hct 32.9 L MCV 91.1 MCH 30.0 MCHC 33.0 RDW 14.9 H Plt Count 551 H Neut % (Auto) Not Reportable Lymph % (Auto) Not Reportable [place] % (Auto) Not Reportable Eos % (Auto) Not Reportable Baso % (Auto) Not Reportable Lymph # (Auto) Not Reportable [place] # (Auto) Not Reportable Baso # (Auto) Not Reportable Total Counted 100 Seg Neutrophils % 77.0 H Band Neutrophils % 15.0 H Lymphocytes % (Manual) 4.0 L Monocytes % (Manual) 4.0 Neutrophils # (Manual) 20221 H Platelet Estimate Increased on smear RBC Morphology Normal morphology Sodium 134 L Potassium 4.1 Chloride 104 Carbon Dioxide 25 BUN 14 Creatinine 0.43 L Estimated GFR > 60 BUN/Creatinine Ratio 32.6 H Glucose 102 Calcium 8.8 Total Bilirubin 0.4 AST 64 H ALT 47 H Alkaline Phosphatase 105 Total Protein 6.9 Albumin 3.8 Globulin 3.1 Albumin/Globulin Ratio 1.2 [facility] Social History household members: none Smoking Status: Former smoker alcohol intake: former Discharge Plan Discharge Plan Patient Disposition: Assisted Living Other facility: [place] [facility] [id number] Adult Family Consult as needed: Dental, Hearing, Mental health, Podiatry and Vision Discharge orders & Medications Discharge Orders: Discharge (Order); Ordered 01/19/24 Ordered By: Doug Freeman Prescriptions: New diltiazem HCl 120 mg Capsule,Extended Release 24hr 120 mg PO DAILY Qty: 30 0RF prednisone 20 mg tablet 20 mg PO DAILY Qty: 30 0RF colchicine 0.6 mg tablet 0.6 mg PO DAILY Qty: 30 0RF cefuroxime axetil 500 mg tablet 500 mg PO BID Qty: 10 0RF azithromycin 250 mg tablet 250 mg PO DAILY Qty: 3 0RF Rx Instructions: start on day 2 of therapy polyethylene glycol 3350 17 gram/dose powder 17 g PO DAILY Qty: 510 0RF docusate sodium 100 mg capsule 100 mg PO BID Qty: 60 0RF Continued multivitamin Tablet 1 tab PO DAILY celecoxib 200 mg capsule 200 mg PO DAILY acetaminophen 325 mg Tablet 325 mg PO BID atorvastatin 10 mg tablet 10 mg PO DAILY famotidine 20 mg tablet 20 mg PO DAILY ascorbic acid (vitamin C) [Vitamin C] 250 mg tablet 250 mg PO DAILY ferrous sulfate [FeroSul] 325 mg (65 mg iron) tablet 325 mg PO QAM Patient Comments: [NO ORIGINAL SIG] aspirin 81 mg tablet,chewable 1 tab PO DAILY folic acid 1 mg tablet 1 mg PO DAILY K-Phos Original 500 mg tablet,soluble 500 mg PO DAILY thiamine mononitrate (vit B1) [Vitamin B-1 (mononitrate)] 100 mg tablet 100 mg PO DAILY Jardiance 10 mg tablet 10 mg PO DAILY magnesium oxide 400 mg (241.3 mg magnesium) tablet 400 mg PO DAILY metformin 500 mg tablet extended release 24 hr 500 mg PO BID cyclobenzaprine 5 mg tablet 5 mg PO 3XD PRN (Reason: Pain (Scale Score 4-6)) insulin glargine [Lantus Solostar U-100 Insulin] 100 unit/mL (3 mL) insulin pen 24 unit SUBCUT QPM Patient Comments: [NO ORIGINAL SIG] Follow up/Referrals: Seb Lomeli MD [Primary Care Provider] - Diet/Activity/Treatments Diet: Low-sodium Skin/Wound/Dressing Care Report to your healthcare provider any signs of infection, such as:: chills, fever, night sweats and increased pain Special Rehabilitation Services Reason for rehabilitation: Recovery r/t decondition Rehab type: Home health Visit Report/Discharge Packet Instructions: DI for Rheumatoid Arthritis, How to Prevent Falls Stand Alone Forms: Patient Portal/API, Stroke Signs & Symptoms Discharge Data Primary Care Provider: Seb Lomeli Quality MIPS - Admit I confirm the patient?s Advance Care Plan is present, Code status is documented, Surrogate decision maker is in patient?s record [If Yes, STOP here]: Yes MIPS - Meds 'Current medications' to include all prescriptions, [id number] products, herbals, cannabis/cannabidiol products, and vitamin/mineral/dietary (nutritional) supplements. I have utilized all available resources to obtain, update, or review the patient?s current medications. [If Yes, STOP here]: Yes MIPS - DC The patient has a history of heart transplant or Left Ventricular Assist Device (LVAD). If yes, STOP here.: No The patient has current or prior documentation of left ventricular ejection fraction (LVEF) less than or equal to 40%, or moderate or severely depressed left ventricular systolic function.: No A. The patient was prescribed or already taking an Angiotensin-Converting Enzyme (TAMMI) Inhibitor, or Angiotensin Receptor Aaron (ARB).: No B. The patient was prescribed or already taking a beta-aaron. [If Yes to Both A & B, STOP here]: No Patient not prescribed/taking TAMMI or ARB, no reason given.: No Patient not prescribed/taking beta-aaron, no reason given.: No I[facility] PROFEE Charge Codes Discharge inpatient/observation: [id number]
--- NOTE | 2024-01-19 14:36 | PC.NURSE ---
Pt agreeable to discharge. IV discontinued, telemetry removed. Vitals WDL. Call made to admitting to change PCP on chart to Dr. Rene primary care. Education provided on a fib, stroke s/s, fall prevention. Pt wheeled via w/c to private vehicle with primary caregiver at approximately 1430.
== END 2024-01-19 14:30 | disposition home health service (06) | DRG 314 ==
LOC: ED 14:38 → AC 17:36 → ICU 01-17 08:32 → AC 01-17 11:29
PROVIDERS: Admitting Provider Hospitalist; Emergency Provider Emergency Medicine; PCP Family Medicine; Referring Provider Emergency Medicine; Visit Provider Hospitalist
DX: I01.0 Acute rheumatic pericarditis (principal); J18.9 Pneumonia, unspecified organism; M84.421A Pathological fracture, right humerus, initial encounter for fracture; M06.9 Rheumatoid arthritis, unspecified; E11.9 Type 2 diabetes mellitus without complications; I48.91 Unspecified atrial fibrillation; D72.829 Elevated white blood cell count, unspecified; I31.39 Other pericardial effusion (noninflammatory); Z79.84 Long term (current) use of oral hypoglycemic drugs; Z87.891 Personal history of nicotine dependence; Z79.4 Long term (current) use of insulin
CPT/HCPCS: 36415; 71045; 71275; 80048; 80053; 82550; 82962; 83690; 83735; 83880; 84484; 85007; 85025; 85610; 85651; 85730; 86140; 86430; 87040; 87797; 93005; 93306; 96365; 97116; 97161; 99284; 99291; J0696; J1644; J1815; J2405; J2919; Q9967

== ENCOUNTER → 2024-06-27 12:41 | Outpatient (CLI) | payer MEDICARE, SELFPAY ==
[2024-01-16 18:21] VITALS: BMI 18.7
--- NOTE | 2024-06-27 12:44 | DI.ECHO.S_ITS ---
[facility] : : [id number] : [place] : : [id number] : : Phone: [phone] Echocardiogram Report + + :Name: ERIK SAENZ Study Date: 06/27/2024 Height: 61.5 in: :[facility] ReadingLocation: Weight: 105 lb : : Gender: Female BSA: 1.4 m2 : :: 1955 Age: 68 yrs BP: 126/72 mmHg: :Reason For Study: PERICARDIAL EFFUSION : :Ordering Physician: LURDES GRAVES Performed By: Halina Pimentel : :Referring: LURDES GRAVES : + + Interpretation Summary 1. Normal LV contractility with EF > 65%. No WMA. No LVH. Normal diastolic function. 2. Normal RV contractility. 3. Normal chamber sizes. 4. Trace to mild MR. 5. Mild TR with estimated PSAP 21 mmHg. 6. No obvious intracardiac shunts. 7. No obvious intracardiac masses/thrombi. 8. No hemodynamically significant pericardial effusion. 9. Low right sided filling pressures. Conclusion: Normal biventricular function with mild valvular insufficiencies. When compared with previous study, there is resolution of the pericardial effusion. Procedure: A two-dimensional transthoracic echocardiogram with color flow and Doppler was performed. The study quality was technically adequate. Comparison is made with the echocardiogram of 01/17/2024. The patient was in sinus rhythm with heart rates between 75-82 bpm during the exam. Left Ventricle: The left ventricle is normal in size and wall thickness. The ejection fraction is estimated to be 65-70%. Right Ventricle: The right ventricle is normal in size and function. Atria: The left atrial size is normal. Right atrial size is normal. There is no Doppler evidence for an interatrial shunt. Mitral Valve: There is a flat closure plane of the the mitral valve leaflets. There is mild mitral regurgitation. Aortic Valve: The aortic valve is trileaflet. The aortic valve opens well. There is no aortic valve stenosis. No aortic regurgitation is present. Tricuspid Valve: The tricuspid valve leaflets are thin and pliable. There is mild tricuspid regurgitation. The right ventricular systolic pressure is estimated to be at least 21 mmHg based on an estimated right atrial pressure of 3 mm Hg. Pulmonic Valve: The pulmonic valve leaflets are thin and pliable; valve motion is normal. There is no pulmonic valvular regurgitation. Great Vessels: The aortic root is normal size. The dimensions of the ascending aorta are normal. The IVC is of normal diameter and collapses greater than 50% with a sniff. This suggests a low right atrial pressure of 3 mm Hg. Pericardium/ Pleura There is no pericardial effusion. There is no pleural effusion. MMode/2D Measurements & Calculations LVIDd: 4.0 cm LVOT diam: 1.9 cm LVIDs: 2.5 cm Ao root diam: 2.4 cm FS: 37.0 % asc Aorta Diam: 2.3 cm EPSS: 0.05 cm Ao Arch Diam (Prox Trans): 1.9 cm IVSd: 0.54 cm LVPWd: 0.69 cm LV christian. diameter/BSA (cm/m^2): 2.8 LV sys. diameter/BSA (cm/m^2): 1.7 LA A2 area: 11.6 cm2 RA long axis: 4.0 cm LA A4 area: 10.6 cm2 RA area: 10.9 cm2 LA length (vol): 4.1 cm RA vol: 25.3 ml LA vol: 25.4 ml RA : 17.5 ml/m2 LA vol index: 17.6 ml/m2 IVC diam: 1.0 cm RVD1 (basal): 3.4 cm RVD2 (mid): 2.1 cm TAPSE: 1.7 cm Doppler Measurements & Calculations Ao V2 max: 131.7 cm/sec LVOT Max David: 135.1 cm/sec Ao V2 mean: 91.2 cm/sec LV V1 max P.3 mmHg Ao max P.9 mmHg LV V1 VTI: 22.0 cm Ao mean P.7 mmHg JAUN(I,D): 2.4 cm2 Ao V2 VTI: 25.4 cm JAUN(V,D): 2.9 cm2 sev ratio: 0.87 JAUN indexed to BSA (cm^2/m^2): 1.7 MV E max david: 70.6 cm/sec TR max david: 208.7 cm/sec MV A max david: 63.2 cm/sec TR max P.5 mmHg MV E/A: 1.1 PA V2 max: 67.7 cm/sec Med Peak E' David: 7.3 cm/sec PA V2 mean: 46.5 cm/sec E/E' med: 9.7 PA mean P.98 mmHg Lat Peak E' David: 11.3 cm/sec PA pr(Accel): 19.1 mmHg E/E' lat: 6.2 E/e' average: 7.9 MV dec time: 0.19 sec SV(LVOT): 61.2 ml Reading Physician:
== END ==
LOC: ECHO 12:44
PROVIDERS: Referring Provider Internal Medicine; Visit Provider Internal Medicine
DX: I08.1 Rheumatic disorders of both mitral and tricuspid valves (principal); I31.39 Other pericardial effusion (noninflammatory)
CPT/HCPCS: 93306

== ENCOUNTER → 2024-09-05 11:12 | Outpatient (CLI) | payer MEDICARE, SELFPAY ==
[2024-01-16 18:21] VITALS: BMI 18.7
--- NOTE | 2024-09-05 11:13 | DI.CT.S_ITS ---
PROCEDURE: CT CHEST WO CON INDICATIONS: Pulmonary nodule TECHNIQUE: Noncontrast 2.0-2.5 mm thick sections acquired from the pulmonary apices to the posterior costophrenic angles. 7 mm thick axial MIP and 5 mm coronal and sagittal reformats were then acquired. For radiation dose reduction, the following was used: automated exposure control, adjustment of mA and/or kV according to patient size. COMPARISON: None. FINDINGS: Image quality: Diagnostic. Allowing for differences in technique and measurement placement the proximally 2.2 centimeters cc by 2.0 centimeters transverse by 1.3 centimeter AP nodular density in the left apex is unchanged. Pulmonary nodule versus postinflammatory change or apical scarring could give this appearance. Severe S shaped scoliosis of the thoracic spine with moderate degenerative changes unchanged. Postoperative changes with Gardiner rods spanning from approximately T9 into the upper lumbar spine unchanged associated beam hardening artifacts partially limit the exam. Mildly elevated left hemidiaphragm unchanged. Previously noted pericardial effusion and left pleural effusion are no longer evident. No pneumothorax, no pleural effusion, no pericardial effusion, no focal consolidation. Mild calcifications of the aortic arch unchanged. Calcified subcarinal, left hilar lymph nodes measuring up to 7 millimeter short axis commonly related to granulomatous disease stage indeterminate unchanged. No abnormally enlarged mediastinal or hilar lymph nodes greater than 1 centimeter short axis. Lower Neck: No enlarged lymph nodes. Thyroid: No thyroid nodules which require sonographic follow up, per consensus guidelines. Heart: Heart size is normal. Thoracic Vessels: The aorta and pulmonary arteries demonstrate normal size. Mediastinum and [place]: IMPRESSION: Left apical pulmonary nodule or nodular density or scarring as discussed above unchanged. Continued follow-up suggested No new nodules. Other chronic findings as above. Fleischner Society criteria for SOLID lung nodule followup. Nodule size (mm)Low-risk patientHigh-risk patient<6 (single or multiple)No routine followup.Optional CT at 12 months. 6-8 (single or multiple)CT at 6-12 months, then optional CT at 18-24 mo.CT at 6-12 months, then CT at 18-24 months. >8 (single)CT at 3 months, PET-CT, or biopsy. Same as for low-risk pts. >8 (multiple)CT at 3-6 months, then optional CT at 18-24 mo.CT at 3-6 months, then CT at 18-24 months. Fleischner Society criteria for SUB-SOLID lung nodule followup. Solitary pure ground-glass nodules<6 mm (ground glass or part solid)No followup needed. 6 mm or larger (ground glass)CT at 6-12 months to confirm persistence, then CT every 2 years until 5 years.6 mm or larger (part solid)CT at 3-6 months to confirm persistence, then annual CT until 5 years if unchanged and solid component remains <6 mm. Multiple sub-solid nodules<6 mmCT at 3-6 months, then CT consider at 2 & 4 years for high risk patients. [address] at 3-6 months. Subsequent management based on most suspicious lesions. Recommendations do not apply to lung cancer screening, patients with immunosuppression, or patients with known primary cancer. Dictated by: Bandar Dowling M.D. on 09/05/2024 at 11:53 Approved by: Bandar Dowling M.D. on 09/05/2024 at 12:34
== END ==
LOC: CT 11:12
PROVIDERS: Referring Provider Internal Medicine Critical Care Medicine; Visit Provider Internal Medicine Critical Care Medicine
DX: R91.1 Solitary pulmonary nodule (principal)
CPT/HCPCS: 71250

== ENCOUNTER → 2025-05-20 12:43 | Outpatient (CLI) | payer MEDICARE, SELFPAY ==
[2024-01-16 18:21] VITALS: BMI 18.7
--- NOTE | 2025-05-20 12:44 | DI.CT.S_ITS ---
PROCEDURE: CT CHEST WO CON INDICATIONS: Left apical nodule, eval for change TECHNIQUE: Noncontrast 5 mm thick sections acquired from the pulmonary apices to the posterior costophrenic angles. 1 mm lung window, 5 mm thick coronal and sagittal and 7 mm axial MIP reformats were then acquired. For radiation dose reduction, the following was used: automated exposure control, adjustment of mA and/or kV according to patient size. COMPARISON: [facility], CT, CT ANGIO CHEST PE PROTOCOL, 01/16/2024, 15:14. [facility], CT, CT CHEST WO CON, 09/05/2024, 11:22. FINDINGS: Quality: Diagnostic. Lungs: Parenchyma: Left apex pleurally based consolidation versus nodule with wedge shape and air bronchogram overall unchanged in size allowing for differences in lung expansion and imaging plane from most recent prior but appears to be filling in along the pleural surface more especially when compared to 2023. This measures approximately 1.5 AP by 1.9 transverse. Airways: Patent. Pleura: No pneumothorax. No pleural effusion. Mediastinum: Thyroid: Unremarkable. Esophagus: Unremarkable. Heart: Normal size. Vasculature: No aortic aneurysm. Scattered calcified atherosclerotic plaques. Lymphatic: Calcified mediastinal and hilar lymph nodes. Chest wall: Unremarkable. Neck: Surgical clips at the expected location of the right submandibular gland. Upper abdomen: Severe pancreatic calcifications which may be associated with chronic pancreatitis. Left renal cortical calcification. Bones: No aggressive osseous lesion. Chronic fracture of the right proximal humerus. Chronic L2 compression fracture superior endplate. Scoliosis and partially visualized spinal hardware. Degenerative changes of the spine and shoulders. IMPRESSION: Chronic scarring versus nodule in the left lung apex. This is not significantly different in size from examination on 09/05/2024 but it does appear increased in size compared to examination on 01/16/2024. Additional chronic findings listed above. Dictated by: Jose Anderson M.D. on 05/20/2025 at 14:58 Approved by: Jose Anderson M.D. on 05/20/2025 at 15:19
== END ==
LOC: CT 12:43
PROVIDERS: Referring Provider Internal Medicine Critical Care Medicine; Visit Provider Internal Medicine Critical Care Medicine
DX: R91.1 Solitary pulmonary nodule (principal); K86.89 Other specified diseases of pancreas; S42.201S Unspecified fracture of upper end of right humerus, sequela; S32.028S Other fracture of second lumbar vertebra, sequela; M41.9 Scoliosis, unspecified
CPT/HCPCS: 71250